=== PATIENT | female | born 1940 | race Hispanic/Latino ===

== ENCOUNTER 2016-07-26 11:23 | Emergency (ER) | payer MEDICARE, MEDICAID ==
[2016-07-26 12:07] LABS: #Eosinphils 0.1 thou/uL (0.0-0.7); #Lymphocytes 1.9 thou/uL (1.20-3.40); #Monocytes 0.3 thou/uL (0.11-0.59); #Neutrophils 3.3 thou/uL (1.40-6.50); %Basophils 0.8 % (0.0-1.0); %Eosinophils 1.4 % (0.0-10.0); %Lymphocytes 33.2 % (21.0-51.0); Hematocrit 43.4 % (36.0-47.0); Mean Platelet Volume 7.6 fL (7.4-10.4); Red Blood Cell (RBC) Count 5.16 mill/uL (4.20-5.40); White Blood Cell (WBC) Count 5.6 thou/uL (4.8-10.8)
[2016-07-26 12:21] LABS: ALT (SGPT) 21 U/L (0-55); AST (SGOT) 18 U/L (5-34); Alkaline Phosphatase 130 U/L (40-150); Anion Gap 14 mmol/L (10-20); BUN (Urea Nitrogen) 26 mg/dL (9.8-20.1); Bilirubin, Total 0.3 mg/dL (0.2-1.2); CK (CPK) 93 U/L (29-168); Calc. Creatinine Clearance 0 mL/min (70-130); Calcium 9.4 mg/dL (7.8-10.44); Carbon Dioxide 23 mmol/L (23-31); Chloride 109 mmol/L (98-107); Estimated GFR-MDRD 49; Globulin 3.2 g/dL (2.4-3.5); Protein, Total 7.8 g/dL (5.8-8.1)
[2016-07-26 12:23] LABS: Troponin I 0.016 ng/mL (< 0.028)
[2016-07-26 12:46] LABS: Bilirubin Negative (Negative); Blood, Urine Negative (Negative); Glucose, Urine (Dipstick) 100 mg/dL (Negative); Ketone, Urine Negative (Negative); Nitrite Negative (Negative); Protein, Urine (Dipstick) Negative (Neg-Trace); Urobilinogen 0.2 mg/dL (0.2-1.0)
[2016-07-26 12:51] LABS: Bacteria/HPF Rare-Few HPF (None Seen); RBC/HPF None Seen HPF (0-3); WBC/HPF 0-3 HPF (0-3)
--- NOTE | 2016-07-26 13:10 | ERRECORD ---
[facility] EMERGENCY RECORD HPI SYNCOPE (11:40 JROB) CHIEF COMPLAINT: Patient presents for evaluation of syncope. HISTORIAN: History provided by patient, 76 year old female was brought in by friend after syncopal episode while at [employer] today. The patient states that she felt well this morning, ate breakfast, then was picked up for [employer]. The while at [employer] she suddenly "fell", bystanders said she was unconscious for several seconds. LOCATION: No localizing symptoms. QUALITY: Symptom quality described as blackout. SEVERITY: Current severity of pain rated as 0/10. TIME COURSE: Sudden onset of symptoms. ASSOCIATED WITH: No associated abdominal pain, No associated back pain, No associated chest pain, No associated diarrhea, Associated with fall, No associated GI Bleed, Associated with headache, No associated shortness of breath, No associated seizures, No associated vomiting. EXACERBATED BY: Patient's condition exacerbated by nothing. RELIEVED BY: Patient's condition relieved by nothing. RISK FACTORS: Abdominal aortic aneurysm risk factors, include age over 40 years, Subarachnoid hemorrhage risk factors, not applicable for this patient, Thoracic aortic dissection risk factors, include hypertension, Coronary artery disease risk factors, include diabetes, include hypertension. ROS (11:44 JROB) CONSTITUTIONAL: Historian denies chills, denies fever. EYES: Historian denies vision changes. ENT: Historian denies sore throat. CARDIOVASCULAR: Historian denies chest pain, reports syncope. RESPIRATORY: Historian denies cough, denies shortness of breath. GI: Historian denies nausea, denies vomiting. GENITOURINARY FEMALE: Historian denies dysuria. MUSCULOSKELETAL: Historian denies back pain. SKIN: Historian denies rash. NEUROLOGIC: Historian reports headache. HEMO/LYMPHATIC: Historian denies abnormal blood clotting. ALLERGIC/IMMUNOLOGIC: Historian denies frequent infections. PSYCHIATRIC: Historian denies alcohol abuse, denies drug abuse. NOTES: All systems reviewed, negative except as described above. PAST MEDICAL HISTORY MEDICAL HISTORY: Flu vaccine not up to date, Tetanus not up to date, Pneumococcal vaccine not up to date, Past medical history includes history of hyperlipidemia, high cholesterol, Past medical history includes history of diabetes, Type I, Past medical history includes history of hypertension, which has been treated,. (11:39 BDON) FEMALE SURGICAL HISTORY: Surgical history of &a-1R&a+25V*p+0X*a6025B*c202B*c15G*c2P*p-0X&a-25V&a+1R Name: Yesenia Page : 1940 F76 MedRec: [id number] AcctNum: [id number] Prepared: Kathryn Jul 26, 2016 15:31 by Interface Page 1 of 4 pMD [facility] EMERGENCY RECORD section, Surgical history of tubal ligation,. (11:39 BDON) PSYCHIATRIC HISTORY: No previous psychiatric history. (11:39 BDON) SOCIAL HISTORY: Patient denies alcohol use, Patient denies drug use, Patient has no smoking history, . (11:39 BDON) NOTES: Nursing records reviewed, Agree with nursing records, Medication list reviewed. (11:46 JROB) KNOWN ALLERGIES No Known Allergies (Unconfirmed) No Known Drug Allergies CURRENT MEDICATIONS lisinopril: TABLET : Strength - 40 mg : ORAL Patient Dose: 40 mg Oral 2 times a day. (11:35 BDON) amLODIPine: TABLET : Strength - 10 mg : ORAL Patient Dose: 10 mg Oral once a day. (11:35 BDON) pravastatin: TABLET : Strength - 20 mg : ORAL Patient Dose: 20 mg null. (11:36 BDON) meloxicam: TABLET : Strength - 7.5 mg : ORAL Patient Dose: 7.5 mg/kg null. (11:36 BDON) meclizine: CAPSULE : Strength - 25 mg : ORAL Patient Dose: 25 mg Oral As Needed. (11:36 BDON) acetaminophen-codeine: TABLET : Strength - 325 mg-30 mg : ORAL Patient Dose: 1-2 tab(s) Oral every 6 hours PRN. (11:36 BDON) VITAL SIGNS VITAL SIGNS: BP: 123/96, Pulse: 87, Resp: 20, Pain: 0, O2 sat: 100, Time: 07/26/2016 11:33. (11:33 BDON) Temp: 98.5 (Oral), Time: 07/26/2016 11:35. (11:35 BDON) BP: 189/86, Pulse: 73, Resp: 18, Pain: 0, O2 sat: 97, Time: 07/26/2016 12:31. (12:31 BDON) BP: 202/75, Time: 07/26/2016 12:39. (12:39 BDON) BP: 186/78, Pulse: 74, Resp: 14, O2 sat: 97, Time: 07/26/2016 13:00. (13:00 BDON) BP: 188/72, Pulse: 77, Time: 07/26/2016 13:31. (13:31 BDON) BP: 174/70, Pulse: 70, Resp: 15, Pain: 0, O2 sat: 99, Time: 07/26/2016 14:30. (14:30 BDON) BP: 154/65, Pulse: 71, Resp: 18, O2 sat: 98, Time: 07/26/2016 15:13. (15:13 BDON) PHYSICAL EXAM (11:45 JROB) CONSTITUTIONAL: Vital Signs Reviewed, Patient afebrile, Pulse &a-1R&a+25V*p+0X*r6050X*c202B*c15G*c2P*p-0X&a-25V&a+1R Name: Yesenia Page : 1940 F76 MedRec: [id number] AcctNum: [id number] Prepared: Kathryn Jul 26, 2016 15:31 by Interface Page 2 of 4 pMD [facility] EMERGENCY RECORD normal, Blood pressure normal, Patient alert and oriented to person, place and time. HEAD: Head exam normal, Head exam included findings of head atraumatic. EYES: Eye exam normal, Pupils equally round and reactive to light, Extraocular muscles intact. ENT: Nose exam normal, Pharynx exam normal, Mouth exam normal. NECK: Neck exam normal, no cervical adenopathy. RESPIRATORY CHEST: Breath sounds clear, No wheezing, No rales, No rhonchi. CARDIOVASCULAR: Cardiovascular assessment normal, Cardiovascular exam included findings of heart rate regular rate and rhythm, Heart sounds normal. ABDOMEN FEMALE: Abdominal exam included findings of abdomen nontender, no mass, no peritoneal signs. BACK: Back exam normal. UPPER EXTREMITY: Upper extremity exam normal, Upper extremity exam included findings of inspection normal, Motor strength normal, Sensation intact. LOWER EXTREMITY: Lower extremity exam normal, Lower extremity exam included findings of inspection normal, Motor strength normal, Sensation intact. NEURO: Neuro exam findings include patient oriented to person, place and time, no focal motor deficits, no focal sensory deficits, no cerebellar deficits. SKIN: Skin exam included findings of skin warm, dry. EKG INTERPRETATION (11:47 JROB) 12 LEAD EKG INTERPRETATION: 12 lead EKG interpreted by Emergency Department Physician at time of study, 12 lead EKG shows normal sinus rhythm, Rate (beats per minute): 75, with no ectopics, Conduction normal, ST segments normal, T waves normal, [place] normal, No other findings, Clinical impression: Normal EKG. RADIOLOGYINTERPRETATION HEAD: Head CT negative, without contrast, no bleed, no mass, no acute changes. (12:10 JROB) CHEST: Chest films negative, no infiltrates, no congestive heart failure, no effusion. (12:25 JROB) FUELS ENGINEER: Preliminary review of CT scans by, Radiologist. (12:10 JROB) Preliminary review of x-rays by, Radiologist. (12:25 JROB) DOCTOR NOTES TEXT: 73 year old female with syncopal episode, no preceding symptoms. Will check CT head, CXR, labs, continue to monitor. (11:47 JROB) Workup unremarkable this far, will discuss with PMD. (12:28 JROB) Discussed with Dr. Villareal, will proceed with transfer to . &a-1R&a+25V*p+0X*o9974C*c202B*c15G*c2P*p-0X&a-25V&a+1R Name: Yesenia Page : 1940 F76 MedRec: [id number] AcctNum: [id number] Prepared: Kathryn Jul 26, 2016 15:31 by Interface Page 3 of 4 pMD [facility] EMERGENCY RECORD Mary Grace Hansen. (12:43 JROB) Patient accepted by Dr. Evangelista at 12:45pm. (12:51 JROB) Blood pressure fluctuating, up to 200's/70's, then spontaneously down to 180's/70's, will continue to monitor. (13:19 JROB) PATIENT PLAN: The patient requires a transfer and will be transferred, per physician request, due to availability of specialty care, Transfer form completed. (12:51 JROB) DATA REVIEWED: Lab data reviewed, Xray data reviewed, Reviewed EKG. (12:51 JROB) PROBLEM LIST No recorded problems DIAGNOSIS DIFFERENTIAL: Based on history, exam and ancillary studies if indicated: Impression: syncope, Impression: near syncope, Impression: syncope of unclear etiology, Impression: volume depletion, Impression: cardiac dysrhythmia, Impression: seizure, Diagnoses considered are not limited to those documented above. (12:46 JROB) FINAL: PRIMARY: SYNCOPE AND COLLAPSE. (12:52 JROB) PRESCRIPTION No recorded prescriptions DISPOSITION PATIENT: Disposition Type: Transfer, Disposition: Transfer to [facility]. (12:52 JROB) Patient left the department. (15:24 BDON) Acosta: BDON=KADE Hudson, Nadine JROB=MD Chacorta, Sage &a-1R&a+25V*p+0X*x2643U*c202B*c15G*c2P*p-0X&a-25V&a+1R Name: Yesenia Page Suleman : 1940 F76 MedRec: [id number] AcctNum: [id number] Prepared: aKthryn Jul 26, 2016 15:31 by Interface Page 4 of 4 pMD MTDD
--- NOTE | 2016-07-26 13:13 | PICIS ---
[facility] EMERGENCY RECORD TRIAGE (WedJul 26, 2016 11:35 BDON) TRIAGE NOTES: syncope episode while walking at [employer]. (WedJul 26, 2016 11:35 BDON) PATIENT: NAME: Yesenia Page, AGE: 76, GENDER: female, : Wed1940, TIME OF GREET: WedJul 26, 2016 11:23, PREFERRED LANGUAGE: Afghan, ETHNICITY: or , ECODE BILLING MAP: [facility], SSN: [id number], Zip Code: [address], KG WEIGHT: 56.70, PHONE: , , , PERSON ID: [id number], PCP: Donn QUINTERO POLLACHI. (WedJul 26, 2016 11:35 BDON) COMPLAINT: PASSED OUT. (WedJul 26, 2016 11:35 BDON) ADMISSION: URGENCY: 2 Emergent, ADMISSION SOURCE: Other, TRANSPORT: Walk-in, BED: TRIAGE. (WedJul 26, 2016 11:35 BDON) ASSESSMENT: Assessment: Syncope event at scientology, witnessed for a few seconds., Symptoms began 30 min ago. (11:39 BDON) LMP: LMP: Not Applicable. (11:39 BDON) TREATMENTS IN PROGRESS: Treatments given Prehospital: Advil 0800. (11:39 BDON) PROVIDERS: TRIAGE NURSE: Nadine Hudson RN. ([place] Jul 26, 2016 11:35 BDON) VITAL SIGNS: BP 123/96, Pulse 87, Resp 20, Pain 0, O2 Sat 100, Time 07/26/2016 11:33. (11:33 BDON) PREVIOUS VISIT ALLERGIES: No Known Drug Allergies. ([place] Jul 26, 2016 11:35 BDON) No Known Drug Allergies. (11:39 BDON) KNOWN ALLERGIES No Known Allergies (Unconfirmed) No Known Drug Allergies CURRENT MEDICATIONS lisinopril: TABLET : Strength - 40 mg : ORAL Patient Dose: 40 mg Oral 2 times a day. (11:35 BDON) amLODIPine: TABLET : Strength - 10 mg : ORAL Patient Dose: 10 mg Oral once a day. (11:35 BDON) pravastatin: TABLET : Strength - 20 mg : ORAL Patient Dose: 20 mg null. (11:36 BDON) meloxicam: TABLET : Strength - 7.5 mg : ORAL Patient Dose: 7.5 mg/kg null. (11:36 BDON) meclizine: CAPSULE : Strength - 25 mg : ORAL Patient Dose: 25 mg Oral As Needed. (11:36 BDON) acetaminophen-codeine: TABLET : Strength - 325 mg-30 mg : ORAL Patient Dose: 1-2 tab(s) Oral every 6 hours PRN. (11:36 BDON) &a-1R&a+25V*p+0X*e9093K*c202B*c15G*c2P*p-0X&a-25V&a+1R Name: Yesenia Page : 1940 F76 MedRec: [id number] AcctNum: [id number] Prepared: Kathryn Jul 26, 2016 15:32 by Interface Page 1 of 9 pMD [facility] EMERGENCY RECORD VITAL SIGNS VITAL SIGNS: BP: 123/96, Pulse: 87, Resp: 20, Pain: 0, O2 sat: 100, Time: 07/26/2016 11:33. (11:33 BDON) Temp: 98.5 (Oral), Time: 07/26/2016 11:35. (11:35 BDON) BP: 189/86, Pulse: 73, Resp: 18, Pain: 0, O2 sat: 97, Time: 07/26/2016 12:31. (12:31 BDON) BP: 202/75, Time: 07/26/2016 12:39. (12:39 BDON) BP: 186/78, Pulse: 74, Resp: 14, O2 sat: 97, Time: 07/26/2016 13:00. (13:00 BDON) BP: 188/72, Pulse: 77, Time: 07/26/2016 13:31. (13:31 BDON) BP: 174/70, Pulse: 70, Resp: 15, Pain: 0, O2 sat: 99, Time: 07/26/2016 14:30. (14:30 BDON) BP: 154/65, Pulse: 71, Resp: 18, O2 sat: 98, Time: 07/26/2016 15:13. (15:13 BDON) NURSING ASSESSMENT: CVA ASSESSMENT TOOL (11:35 BDON) CONSTITUTIONAL: Patient arrives, via hospital wheelchair, History obtained from patient, Patient appears comfortable, Patient cooperative, Patient alert, Oriented to person, place and time, Skin warm, Skin dry, Skin normal in color. CVA ASSESSMENT: Speech normal, Hand grasps equal, Foot press equal, Upper extremity motor strength strong, Lower extremity motor strength strong, no facial numbness, no facial droop, no numbness to upper extremities, no numbness to lower extremities, [place] coma scale:, Eye opening: (4) - Spontaneous, Verbal: (5) - Oriented/conversive, Motor: (6) - Obeys commands/Spontaneous, GCS Total: 15. NIHSS: CVA assessment findings: Level of consciousness: alert, keenly responsive (0), Questions: answers both questions correctly (0), Commands: performs both tasks correctly (0), Best gaze: normal (0), Visual: no visual loss (0), Facial palsy: normal symmetrical movement (0), Motor Left Arm: no drift, arm stays 90/45 degrees for full 10 seconds (0), Motor Right Arm: no drift, arm stays 90/45 degrees for full 10 seconds (0), Motor left leg: no drift, leg stays at 30 degrees for full five seconds (0), Motor right leg: no drift, leg stays at 30 degrees for full five seconds (0), Limb ataxia absent (0), Sensory: normal, no sensory loss (0), Best language: no aphasia; normal (0), Dysarthria: normal (0), Extinction and Inattention: normal (0). NURSING ASSESSMENT: FALL RISK (12:53 BDON) FALL RISK: Impaired mobility (3), Neurologic diagnosis (3), Total score 6. NURSING PROCEDURE: BEDSIDE TESTING (11:38 MCBE) PATIENT IDENTIFIER: Patient actively involved in identification process, Patient's identity verified by patient stating name, Patient's identity verified by patient stating date, Patient's identity verified by hospital ID bracelet. &a-1R&a+25V*p+0X*v5777I*c202B*c15G*c2P*p-0X&a-25V&a+1R Name: CamiloMiguel bermudezjacinto Shell : 1940 F76 MedRec: [id number] AcctNum: [id number] Prepared: Kathryn Jul 26, 2016 15:32 by Interface Page 2 of 9 pMD [facility] EMERGENCY RECORD GLUCOSE: Glucose testing indicated for diabetic patient, Glucose testing indicated for mental status changes, Capillary blood sample, Result (mg/dl) 163. NURSING PROCEDURE: COMMUNICATIONS COMMUNICATIONS: Family, Phone number: [phone], Son went home, will call when she is transported. (14:22 BDON) Family, Name of person contacted: larissa Lewis mom left ER. (15:19 BDON) NURSING PROCEDURE: EKG CHART (11:42 MCBE) PATIENT IDENTIFIER: Patient actively involved in identification process, Patient's identity verified by patient stating name, Patient's identity verified by patient stating date, Patient's identity verified by hospital ID bracelet. EKG: EKG indicated for syncope. FOLLOW-UP: After procedure, EKG for interpretation given to Dr. DELATORRE. NURSING PROCEDURE: NURSE NOTES NURSES NOTES: Notes: Ambulatory to restroom with assistance. (12:32 BDON) Notes: Patient and family aware of need for admission and agrees to be transferred to [facility]. (12:40 BDON) Notes: Physician aware of increase in blood pressure, will retake,. (12:47 BDON) Meal tray given to patient. (13:27 BDON) Notes: URINE CULTURE NOT COLLECTED NOR ORDERED BY ERMD. ORDER WAS PUT IN TO CHECK IF EVENT SALES ASSISTANT WAS WORKING. (14:56 MCBE) Notes: Departed to [facility]. (15:11 BDON) NURSING PROCEDURE: TRANSFER (13:31 BDON) TRANSFER: Reason for transfer no bed available, Reason for transfer primary physician request, Diagnosis: Syncope and collapse, Accepting institution: [facility], Accepting physician: Jean Carlos, Referring physician: Chacorta, Transported by urgent ambulance, accompanied by emergency medical services personnel, Report called to receiving facility, KADE Younger. VITAL SIGNS: BP: 188, / 72, Pulse: 77. NURSING PROCEDURE: TRANSPORT TO TESTS (12:25 KPEA) TRANSPORT TO TESTS: Patient transported to CT scan, Accompanied by x-ray endoscope technician, Patient arrived in location at 1154. Patient departed location at 1205. Patient arrived in location at 1154, Patient departed location at 1205. ORDER DETAILS Order Name: Cardiac Profile w/CKMB & Troponin - I, Status: Active, Time: 11:40 07/26/2016, User: NEGAR, &a-1R&a+25V*p+0X*e1512T*c202B*c15G*c2P*p-0X&a-25V&a+1R Name: Yesenia Page : 1940 F76 MedRec: [id number] AcctNum: [id number] Prepared: Kathryn Jul 26, 2016 15:32 by Interface Page 3 of 9 pMD [facility] EMERGENCY RECORD - Ordered for: MD Delatorre Joseph, - Entered by: MD Delatorre Joseph - Kathryn Jul 26, 2016 11:40, - Quantity: 1, Order Name: CBC with Differential, Status: Active, Time: 11:40 07/26/2016, User: NEGAR, - Ordered for: MD Delatorre Joseph, - Entered by: MD Delatorre Joseph - Kathryn Jul 26, 2016 11:40, - Quantity: 1, Order Name: CK (CPK), Status: Active, Time: 11:40 07/26/2016, User: NEGAR, - Ordered for: MD Delatorre Joseph, - Entered by: MD Delatorre Joseph - Kathryn Jul 26, 2016 11:40, - Quantity: 1, Order Name: Comprehensive Metabolic Panel, Status: Active, Time: 11:40 07/26/2016, User: NEGAR, - Ordered for: MD Delatorre Joseph, - Entered by: MD Delatorre Joseph - Sun Jul 26, 2016 11:40, - Quantity: 1, Order Name: CT Brain WO Con, Status: Active, Time: 11:40 07/26/2016, User: NEGAR, - Ordered for: MD Delatorre Joseph, - Entered by: MD Delatorre Joseph - Sun Jul 26, 2016 11:40, - Quantity: 1, Order Name: Culture, Urine, Status: Active, Time: 14:54 07/26/2016, User: STEVE, - Ordered for: MD Delatorre Joseph, - Entered by: Kenya Thrasher - Kathryn Jul 26, 2016 14:54, - Quantity: 1, Order Name: EKG 12 Lead in Emergency Room, Status: Active, Time: 11:40 07/26/2016, User: NEGAR, - Ordered for: MD Delatorre Joseph, - Entered by: MD Delatorre Joseph - Kathryn Jul 26, 2016 11:40, - Quantity: 1, Order Name: SALINE LOCK, Status: Done, Time: 11:55 07/26/2016, User: STEVE, - Ordered for: MD Delatorre Joseph, - Entered by: MD Delatorre Joseph - Kathryn Jul 26, 2016 11:40, - Quantity: 1, Order Name: Urinalysis with Microscopic, Status: Active, Time: 11:40 07/26/2016, User: NEGAR, - Ordered for: MD Delatorre Joseph, - Entered by: MD Delatorre Joseph - Kathryn Jul 26, 2016 11:40, - Quantity: 1, Order Name: XR Chest 1 View Portable, Status: Active, Time: 11:40 07/26/2016, User: NEGAR, - Ordered for: MD Delatorre Joseph, - Entered by: MD Delatorre Joseph - Kathryn Jul 26, 2016 11:40, - Quantity: 1. HPI SYNCOPE (11:40 NEGAR) &a-1R&a+25V*p+0X*a4533S*c202B*c15G*c2P*p-0X&a-25V&a+1R Name: Yesenia Page : 1940 F76 MedRec: [id number] AcctNum: [id number] Prepared: Kathryn Jul 26, 2016 15:32 by Interface Page 4 of 9 pMD [facility] EMERGENCY RECORD CHIEF COMPLAINT: Patient presents for evaluation of syncope. HISTORIAN: History provided by patient, 76 year old female was brought in by friend after syncopal episode while at scientology today. The patient states that she felt well this morning, ate breakfast, then was picked up for scientology. The while at scientology she suddenly "fell", bystanders said she was unconscious for several seconds. LOCATION: No localizing symptoms. QUALITY: Symptom quality described as blackout. SEVERITY: Current severity of pain rated as 0/10. TIME COURSE: Sudden onset of symptoms. ASSOCIATED WITH: No associated abdominal pain, No associated back pain, No associated chest pain, No associated diarrhea, Associated with fall, No associated GI Bleed, Associated with headache, No associated shortness of breath, No associated seizures, No associated vomiting. EXACERBATED BY: Patient's condition exacerbated by nothing. RELIEVED BY: Patient's condition relieved by nothing. RISK FACTORS: Abdominal aortic aneurysm risk factors, include age over 40 years, Subarachnoid hemorrhage risk factors, not applicable for this patient, Thoracic aortic dissection risk factors, include hypertension, Coronary artery disease risk factors, include diabetes, include hypertension. ROS (11:44 JROB) CONSTITUTIONAL: Historian denies chills, denies fever. EYES: Historian denies vision changes. ENT: Historian denies sore throat. CARDIOVASCULAR: Historian denies chest pain, reports syncope. RESPIRATORY: Historian denies cough, denies shortness of breath. GI: Historian denies nausea, denies vomiting. GENITOURINARY FEMALE: Historian denies dysuria. MUSCULOSKELETAL: Historian denies back pain. SKIN: Historian denies rash. NEUROLOGIC: Historian reports headache. HEMO/LYMPHATIC: Historian denies abnormal blood clotting. ALLERGIC/IMMUNOLOGIC: Historian denies frequent infections. PSYCHIATRIC: Historian denies alcohol abuse, denies drug abuse. NOTES: All systems reviewed, negative except as described above. PAST MEDICAL HISTORY MEDICAL HISTORY: Flu vaccine not up to date, Tetanus not up to date, Pneumococcal vaccine not up to date, Past medical history includes history of hyperlipidemia, high cholesterol, Past medical history includes history of diabetes, Type I, Past medical history includes history of hypertension, which has been treated,. (11:39 BDON) FEMALE SURGICAL HISTORY: Surgical history of section, Surgical history of tubal ligation,. (11:39 BDON) &a-1R&a+25V*p+0X*n8341O*c202B*c15G*c2P*p-0X&a-25V&a+1R Name: Yesenia Page Suleman : 1940 F76 MedRec: [id number] AcctNum: [id number] Prepared: Kathryn Jul 26, 2016 15:32 by Interface Page 5 of 9 pMD [facility] EMERGENCY RECORD PSYCHIATRIC HISTORY: No previous psychiatric history. (11:39 BDON) SOCIAL HISTORY: Patient denies alcohol use, Patient denies drug use, Patient has no smoking history, . (11:39 BDON) NOTES: Nursing records reviewed, Agree with nursing records, Medication list reviewed. (11:46 JROB) PHYSICAL EXAM (11:45 JROB) CONSTITUTIONAL: Vital Signs Reviewed, Patient afebrile, Pulse normal, Blood pressure normal, Patient alert and oriented to person, place and time. HEAD: Head exam normal, Head exam included findings of head atraumatic. EYES: Eye exam normal, Pupils equally round and reactive to light, Extraocular muscles intact. ENT: Nose exam normal, Pharynx exam normal, Mouth exam normal. NECK: Neck exam normal, no cervical adenopathy. RESPIRATORY CHEST: Breath sounds clear, No wheezing, No rales, No rhonchi. CARDIOVASCULAR: Cardiovascular assessment normal, Cardiovascular exam included findings of heart rate regular rate and rhythm, Heart sounds normal. ABDOMEN FEMALE: Abdominal exam included findings of abdomen nontender, no mass, no peritoneal signs. BACK: Back exam normal. UPPER EXTREMITY: Upper extremity exam normal, Upper extremity exam included findings of inspection normal, Motor strength normal, Sensation intact. LOWER EXTREMITY: Lower extremity exam normal, Lower extremity exam included findings of inspection normal, Motor strength normal, Sensation intact. NEURO: Neuro exam findings include patient oriented to person, place and time, no focal motor deficits, no focal sensory deficits, no cerebellar deficits. SKIN: Skin exam included findings of skin warm, dry. LAB INTERPRETATION (12:27 JROB) INTERPRETATION: I reviewed the lab results, CBC normal, Chemistry abnormal, Chloride elevated, Glucose elevated, BUN elevated, Chemistry otherwise normal, Cardiac enzymes normal, Liver functions normal. EVENTS TRANSFER: Triage to Emergency Triage. (Kathryn Jul 26, 2016 11:35 BDON) Emergency Triage to Emergency Room -03. (11:36 BDON) Removed from Emergency Emergency Room -03. (15:24 BDON) RADIOLOGYINTERPRETATION HEAD: Head CT negative, without contrast, no bleed, no mass, no &a-1R&a+25V*p+0X*y2170Z*c202B*c15G*c2P*p-0X&a-25V&a+1R Name: Yesenia Page Suleman : 1940 F76 MedRec: [id number] AcctNum: [id number] Prepared: Kathryn Jul 26, 2016 15:32 by Interface Page 6 of 9 pMD [facility] EMERGENCY RECORD acute changes. (12:10 JROB) CHEST: Chest films negative, no infiltrates, no congestive heart failure, no effusion. (12:25 JROB) HUNTING SALES LEADER: Preliminary review of CT scans by, Radiologist. (12:10 JROB) Preliminary review of x-rays by, Radiologist. (12:25 JROB) EKG INTERPRETATION (11:47 JROB) 12 LEAD EKG INTERPRETATION: 12 lead EKG interpreted by Emergency Department Physician at time of study, 12 lead EKG shows normal sinus rhythm, Rate (beats per minute): 75, with no ectopics, Conduction normal, ST segments normal, T waves normal, Marvell normal, No other findings, Clinical impression: Normal EKG. O2SAT INTERPRETATION (11:46 JROB) O2SAT: Single pulse oximetry, Oxygen saturation 100%, on room air, Oxygen saturation interpretation: Normal, No intervention required. DOCTOR NOTES TEXT: 73 year old female with syncopal episode, no preceding symptoms. Will check CT head, CXR, labs, continue to monitor. (11:47 JROB) Workup unremarkable this far, will discuss with PMD. (12:28 JROB) Discussed with Dr. Villareal, will proceed with transfer to [facility]. (12:43 JROB) Patient accepted by Dr. Evangelista at 12:45pm. (12:51 JROB) Blood pressure fluctuating, up to 200's/70's, then spontaneously down to 180's/70's, will continue to monitor. (13:19 JROB) PATIENT PLAN: The patient requires a transfer and will be transferred, per physician request, due to availability of specialty care, Transfer form completed. (12:51 JROB) DATA REVIEWED: Lab data reviewed, Xray data reviewed, Reviewed EKG. (12:51 JROB) PROBLEM LIST No recorded problems DIAGNOSIS DIFFERENTIAL: Based on history, exam and ancillary studies if indicated: Impression: syncope, Impression: near syncope, Impression: syncope of unclear etiology, Impression: volume depletion, Impression: cardiac dysrhythmia, Impression: seizure, Diagnoses considered are not limited to those documented above. (12:46 JROB) FINAL: PRIMARY: SYNCOPE AND COLLAPSE. (12:52 JROB) DISPOSITION PATIENT: Disposition Type: Transfer, Disposition: Transfer to &a-1R&a+25V*p+0X*t4202L*c202B*c15G*c2P*p-0X&a-25V&a+1R Name: Yesenia Page : 1940 F76 MedRec: [id number] AcctNum: [id number] Prepared: [place] Jul 26, 2016 15:32 by Interface Page 7 of 9 pMD [facility] EMERGENCY RECORD [facility]. (12:52 JROB) Patient left the department. (15:24 BDON) PRESCRIPTION No recorded prescriptions IMAGING CONSENTS: Image captured from scanner. (12:55 BELE) MEMOR: Image captured from scanner. (12:55 BELE) *EKG: Image captured from scanner. (12:57 BELE) *SUPPLY CHARGE SHEET: Image captured from scanner. (15:23 BDON) ADMIN DIGITAL SIGNATURE: MD Delatorre Joseph. (12:53 JROB) MD Delatorre Joseph. (13:21 JROB) KADE Hudson, Nadine. (15:24 BDON) RESULTS LABORATORY: Accuchek Collection DT: [place] Jul 26, 2016 11:42, *Accuchek 163 - H mg/dL, Range (70-110). (11:48 JROB) CBC with Differential Collection DT: [place] Jul 26, 2016 12:00, White Blood Cell (WBC) Count 5.6 thou/uL, Range (4.8-10.8), Red Blood Cell (RBC) Count 5.16 mill/uL, Range (4.20-5.40), Hemoglobin 14.8 g/dL, Range (12.0-16.0), Hematocrit 43.4 %, Range (36.0-47.0), Mean Corpuscular Volume 84.2 fl, Range (81.0-99.0), Mean Corpuscular Hemoglobin 28.6 pg, Range (27.0-31.0), Mean Corpuscular HGB CONC 34.0 g/dL, Range (32.0-36.0), RBC Distribution Width 12.2 %, Range (11.5-14.5), Platelet Count 202 thou/uL, Range (130-400), Mean Platelet Volume 7.6 fL, Range (7.4-10.4), %Neutrophils 59.7 %, Range (42.0-75.0), %Lymphocytes 33.2 %, Range (21.0-51.0), %Monocytes 5.0 %, Range (0.0-10.0), %Eosinophils 1.4 %, Range (0.0-10.0), %Basophils 0.8 %, Range (0.0-1.0), #Neutrophils 3.3 thou/uL, Range (1.40-6.50), #Lymphocytes 1.9 thou/uL, Range (1.20-3.40), #Monocytes 0.3 thou/uL, Range (0.11-0.59), #Eosinphils 0.1 thou/uL, Range (0.0-0.7), #Basophils 0.0 thou/uL, Range (0.0-0.2). (12:08 JROB) Cardiac Profile w/CKMB & TropI Collection DT: [place] Jul 26, 2016 12:00, CKMB 1.8 ng/mL, Range (0-6.6), Troponin I 0.016 ng/mL, Range (< 0.028), Reference Range , 0.00 - 0.028 ng/mL Negative 0.029 - 0.29 ng/mL , Indeterminate Greater or Equal to 0.3 ng/mL Strongly suggests IN , . (12:23 JROB) &a-1R&a+25V*p+0X*n7633E*c202B*c15G*c2P*p-0X&a-25V&a+1R Name: Yesenia Page : 1940 F76 MedRec: [id number] AcctNum: [id number] Prepared: [place] Jul 26, 2016 15:32 by Interface Page 8 of 9 pMD [facility] EMERGENCY RECORD CK (CPK) Collection DT: [place] Jul 26, 2016 12:00, CK (CPK) 93 U/L, Range (29-168). (12:23 JROB) Comprehensive Metabolic Panel Collection DT: [place] Jul 26, 2016 12:00, Sodium 142 mmol/L, Range (136-145), Potassium 3.8 mmol/L, Range (3.5-5.1), *Chloride 109 - H mmol/L, Range (98-107), Carbon Dioxide 23 mmol/L, Range (23-31), Anion Gap 14 mmol/L, Range (10-20), *BUN (Urea Nitrogen) 26 - H mg/dL, Range (9.8-20.1), Creatinine 1.09 mg/dL, Range (0.6-1.1), Estimated GFR-MDRD 49 , Reference Range for Estimated GFR: Greater than 90, mL/min/1.73 m2 NOTE: The MDRD equation has not been validated for use, with the elderly (over 70 years of age), women, patients with, serious comorbid condition or persons with extremes of body size, muscle, mass, or nutritional status. , *Glucose 185 - H mg/dL, Range (83-110), Calcium 9.4 mg/dL, Range (7.8-10.44), Bilirubin, Total 0.3 mg/dL, Range (0.2-1.2), Protein, Total 7.8 g/dL, Range (5.8-8.1), NOTE: Plasma values are generally 0.3 to 0.5 g/dL higher than serum values, due to the presence of fibrinogen. , Albumin 4.6 g/dL, Range (3.4-4.8), Globulin 3.2 g/dL, Range (2.4-3.5), Alb/Glob Ratio 1.4 g/dL, Range (1.2-2.2), Alkaline Phosphatase 130 U/L, Range (40-150), AST (SGOT) 18 U/L, Range (5-34), ALT (SGPT) 21 U/L, Range (0-55). (12:23 JROB) Urinalysis with Microscopic Collection DT: [place] Jul 26, 2016 12:48, Color Yellow , Range (Yellow), Clarity Hazy , Range (Clear), Specific [place], Urine 1.015 , Range (1.005-1.030), pH, Urine 7.0 , Range (5.0-9.0), *Leukocyte Trace - H , Range (Negative), Nitrite Negative , Range (Negative), Protein, Urine (Dipstick) Negative mg/dL, Range (Neg-Trace), *Glucose, Urine (Dipstick) 100 - H mg/dL, Range (Negative), Ketone, Urine Negative mg/dL, Range (Negative), Urobilinogen 0.2 mg/dL, Range (0.2-1.0), Bilirubin Negative , Range (Negative), Blood, Urine Negative , Range (Negative), RBC/HPF None Seen HPF, Range (0-3), WBC/HPF 0-3 HPF, Range (0-3), *Squamous Epithelial 7-10 - H HPF, Range (0-3), Bacteria/HPF Rare-Few HPF, Range (None Seen). (12:55 JROB) Acosta: BDJESSICA=KADE Hudson, Nadine HAJI=KADE Hinkle Betty JROB=MD Chacorta, Sage COYNEEA=EFREM Carrillo Kim MCBE=Kenya Thrasher &a-1R&a+25V*p+0X*u5255D*c202B*c15G*c2P*p-0X&a-25V&a+1R Name: Yesenia Page : 1940 F76 MedRec: [id number] AcctNum: [id number] Prepared: Kathryn Jul 26, 2016 15:32 by Interface Page 9 of 9 pMD MTDD
--- NOTE | 2016-07-26 15:43 | CT ---
CT OF BRAIN PERFORMED WITHOUT CONTRAST ENHANCEMENT: HISTORY: Syncopal episode while walking at [employer]. FINDINGS: Small ventricular and sulcal prominence. There are no signs of intracerebral hemorrhage or extraaxi al fluid collections. The mastoid air cells are clear. There is mucosal change in the partially vi sualized right maxillary sinus. IMPRESSION: No acute intracranial abnormalities. POS: TOM
--- NOTE | 2016-07-26 15:43 | RAD ---
SINGLE VIEW OF THE CHEST: COMPARISON: 01/31/2016 HISTORY: Syncope while walking at [employer]. FINDINGS: Single view of the chest shows a normal sized cardiomediastinal silhouette. There is no evidence of consolidation, mass, or pleural effusion. Degenerative changes are seen in the spine. IMPRESSION: No evidence of acute cardiopulmonary disease. POS: TOM
== END 2016-07-26 15:11 | disposition short-term general hospital (02) ==
LOC: NAV ERS 11:23
DX: R55 Syncope and collapse (principal); E78.5 Hyperlipidemia, unspecified; E10.9 Type 1 diabetes mellitus without complications; I10 Essential (primary) hypertension; Z98.51 Tubal ligation status
CPT/HCPCS: 36416; 70450; 71010; 80053; 81001; 82550; 82553; 84484; 85025; 87086; 93005

== ENCOUNTER 2016-08-24 04:35 | Emergency (ER) | payer MEDICARE, MEDICAID ==
[2016-08-24 05:02] LABS: #Basophils 0.1 thou/uL (0.0-0.2); #Eosinphils 0.1 thou/uL (0.0-0.7); #Lymphocytes 1.9 thou/uL (1.20-3.40); #Monocytes 0.3 thou/uL (0.11-0.59); #Neutrophils 3.2 thou/uL (1.40-6.50); %Lymphocytes 34.4 % (21.0-51.0); %Monocytes 5.8 % (0.0-10.0); Hematocrit 36.3 % (36.0-47.0); Mean Platelet Volume 7.1 fL (7.4-10.4); Red Blood Cell (RBC) Count 4.35 mill/uL (4.20-5.40); White Blood Cell (WBC) Count 5.6 thou/uL (4.8-10.8)
[2016-08-24 05:21] LABS: ALT (SGPT) 13 U/L (0-55); AST (SGOT) 13 U/L (5-34); Alkaline Phosphatase 105 U/L (40-150); Anion Gap 11 mmol/L (10-20); BUN (Urea Nitrogen) 24 mg/dL (9.8-20.1); Bilirubin, Total 0.3 mg/dL (0.2-1.2); CK (CPK) 69 U/L (29-168); Calc. Creatinine Clearance 0 mL/min (70-130); Calcium 7.8 mg/dL (7.8-10.44); Carbon Dioxide 21 mmol/L (23-31); Chloride 115 mmol/L (98-107); Estimated GFR-MDRD 67; Globulin 2.4 g/dL (2.4-3.5); Lipase 23 U/L (8-78)
[2016-08-24 05:32] LABS: Troponin I Less than 0.010 ng/mL (< 0.028)
--- NOTE | 2016-08-24 06:22 | ERRECORD ---
[facility] EMERGENCY RECORD ADMIN (04:46 MBOS) MERGE: Ambulance Mon Aug 24, 2016 04:31. HPI CHEST PAIN (05:18 SHAN) CHIEF COMPLAINT: Patient presents for evaluation of chest pain. HISTORIAN: History provided by patient, Patient arrived from home with c/o not feeling good, possibly chest pain, no clear history. Arrived by ems. Came on after getting up to have a bowel movement. TIME COURSE: Sudden onset of symptoms, Symptoms are improving. ASSOCIATED WITH: No associated symptoms. EXACERBATED BY: Patient's condition exacerbated by nothing. RELIEVED BY: Patient's condition relieved by nothing. ROS (05:20 SHAN) CONSTITUTIONAL: Negative constitutional review of systems. EYES: Negative eye review of systems. ENT: Negative ears, nose, throat review of systems. CARDIOVASCULAR: Negative cardiovascular review of systems. RESPIRATORY: Negative respiratory review of systems. GI: Negative gastrointestinal review of systems. GENITOURINARY FEMALE: Negative genitourinary review of systems. MUSCULOSKELETAL: Negative musculoskeletal review of systems. SKIN: Negative skin review of systems. NEUROLOGIC: Negative neurologic review of systems. ENDOCRINE: Negative endocrine review of systems. NOTES: All systems reviewed, negative except as described above. PAST MEDICAL HISTORY MEDICAL HISTORY: Flu vaccine up to date, Tetanus not up to date, Pneumococcal vaccine up to date, Past medical history includes history of diabetes, Type I, Past medical history includes history of hyperlipidemia, high cholesterol, Past medical history includes history of hypertension, which has been treated. (04:46 MBOS) Notes: Past medical history includes history of hyperlipidemia, high cholesterol, history of diabetes, Type I (by history), hypertension., Flu vaccine up to date, Tetanus not up to date, Pneumococcal vaccine up to date, Past medical history includes history of diabetes, Type I, Past medical history includes history of hyperlipidemia, high cholesterol, Past medical history includes history of hypertension, which has been treated. (05:31 SHAN) FEMALE SURGICAL HISTORY: Surgical history of tubal ligation. (04:46 MBOS) PSYCHIATRIC HISTORY: No previous psychiatric history. (04:46 MBOS) SOCIAL HISTORY: Patient denies alcohol use, Patient denies drug &a-1R&a+25V*p+0X*n1213C*c202B*c15G*c2P*p-0X&a-25V&a+1R Name: Yesenia Page : 1940 F76 MedRec: [id number] AcctNum: [id number] Prepared: WedAug 24, 2016 08:24 by Interface Page 1 of 4 pMD [facility] EMERGENCY RECORD use, Patient has no smoking history. (04:46 MBOS) KNOWN ALLERGIES No Known Allergies (Unconfirmed) No Known Drug Allergies CURRENT MEDICATIONS (05:52 MBOS) amLODIPine: TABLET : Strength - 10 mg : ORAL Patient Dose: 10 mg Oral once a day. pravastatin: TABLET : Strength - 20 mg : ORAL Patient Dose: 20 mg null. meloxicam: TABLET : Strength - 7.5 mg : ORAL Patient Dose: 7.5 mg/kg null. meclizine: CAPSULE : Strength - 25 mg : ORAL Patient Dose: 25 mg Oral As Needed. VITAL SIGNS VITAL SIGNS: BP: 162/65, Pulse: 80, Resp: 13, Temp: 98.5 (Oral), Pain: 2, O2 sat: 99 on Room Air, Time: 08/24/2016 04:40. (04:40 MBOS) BP: 134/60, Pulse: 74, O2 sat: 98, Time: 08/24/2016 06:13. (06:13 MBOS) BP: 116/53, Pulse: 70, Resp: 16, O2 sat: 98 on Room Air, Time: 08/24/2016 07:00. (07:00 MSPE) BP: 144/67, Pulse: 100, Resp: 18, Pain: 0, O2 sat: 100 on RA, Time: 08/24/2016 08:18. (08:18 GHIA) PHYSICAL EXAM (05:20 SHAN) CONSTITUTIONAL: Patient afebrile, Pulse normal, Blood pressure normal, Respiratory rate normal, Patient appears non toxic, Patient appears pain free, Patient alert and oriented to person, place and time. HEAD: Head exam included findings of head atraumatic, normocephalic. EYES: Eye exam normal, Eye exam included findings of eyelids normal to inspection, Pupils equally round and reactive to light, Extraocular muscles intact. ENT: ENT exam normal, Pharynx exam normal, Uvula exam normal, Tonsil exam normal. NECK: Neck exam normal, Neck exam included findings of normal range of motion, Trachea midline. RESPIRATORY CHEST: Respiratory and chest exam normal, Chest exam included findings of chest movement symmetrical, Chest expansion equal, Percussion normal. CARDIOVASCULAR: Cardiovascular assessment normal, Cardiovascular exam included findings of heart rate regular rate and rhythm, Heart sounds normal. ABDOMEN FEMALE: Abdominal exam normal, Abdominal exam included &a-1R&a+25V*p+0X*b5606U*c202B*c15G*c2P*p-0X&a-25V&a+1R Name: Yesenia Page : 1940 F76 MedRec: [id number] AcctNum: [id number] Prepared: WedAug 24, 2016 08:24 by Interface Page 2 of 4 pMD [facility] EMERGENCY RECORD findings of abdomen nontender, Bowel sounds normal. BACK: Back exam normal. UPPER EXTREMITY: Upper extremity exam normal, Upper extremity exam included findings of inspection normal, Range of motion normal. LOWER EXTREMITY: Lower extremity exam normal, Lower extremity exam included findings of inspection normal, Range of motion normal. NEURO: Neuro exam normal. SKIN: Skin exam normal. PSYCHIATRIC: Psychiatric exam normal, Psychiatric exam included findings of patient oriented to person place and time, Normal affect, Judgment normal, Insight normal. EKG INTERPRETATION (05:43 SHAN) 12 LEAD EKG INTERPRETATION: 12 lead EKG interpreted by Emergency Department Physician at time of study, 12 lead EKG shows normal sinus rhythm, Conduction normal, ST segments normal, T waves normal, [place] normal. MEDICATION ADMINISTRATION SUMMARY Drug Name: *potassium chloride liquid, Dose Ordered: * , Route: Oral, Status: Given, Time: 05:43 08/24/2016, *Additional information available in notes, Detailed record available in Medication Service section. DOCTOR NOTES TEXT: Adult female who presented by ems with vague symptoms of not feeling good. Got up at home to have a bowel movement and continued to not feel good. At one point when asked gave an affirmative to some chest pain but very vague and not clearly repeatable on history. (05:35 SHAN) She appears to be on glimepiride for her diabetes, but has very poor chronic memory/dementia. From evidence at hand; records indicating type 1 diabetes are likely incorrect, with glimepiride as agent; insulin resistant more likely but data not available. Patient does not mention a diuretic, but again does not have much understanding of her meds. Lives with a son. States that daughters drive for her. Potassium replaced. Will allow a pill for potassium. No clear admission criteria. Social situation limited. (05:55 JOSEPH) DATA REVIEWED: Lab data reviewed, Xray data reviewed, Reviewed EKG. (05:35 JOSEPH) PROBLEM LIST No recorded problems DIAGNOSIS (06:13 JOSEPH) FINAL: PRIMARY: atypical chest pain, ADDITIONAL: diabetes type 2, hyperlipidemia, Hypertension, Hypokalemia. &a-1R&a+25V*p+0X*y2642V*c202B*c15G*c2P*p-0X&a-25V&a+1R Name: Yesenia Page : 1940 F76 MedRec: [id number] AcctNum: [id number] Prepared: WedAug 24, 2016 08:24 by Interface Page 3 of 4 pMD [facility] EMERGENCY RECORD PRESCRIPTION (06:12 JOSEPH) potassium chloride oral: CAPSULE, EXTENDED RELEASE : 10 mEq : ORAL : Quantity: 2 Unit: cap(s) Route: ORAL Schedule: once a day Dispense: 30 Unit: cap(s) May substitute. Refills: No Refills . NOTES: No Refills. DISPOSITION PATIENT: Disposition Type: Discharge, Disposition: *Discharge Home. (06:13 JOSEPH) Patient left the department. (08:22 KINGS) Acosta: KINGS=KADE Zapata, Mayela MCINTYRE=KADE Gonzalez Marie MSPE=KADE Villasenor, Opal RUIZ=MD Payne Stanley &a-1R&a+25V*p+0X*p5037A*c202B*c15G*c2P*p-0X&a-25V&a+1R Name: Yesenia Page Suleman : 1940 F76 MedRec: [id number] AcctNum: [id number] Prepared: WedAug 24, 2016 08:24 by Interface Page 4 of 4 pMD MTDD
--- NOTE | 2016-08-24 06:28 | PICIS ---
[facility] EMERGENCY RECORD ADMIN MERGE: Ambulance WedAug 24, 2016 04:31. (04:46 MBOS) TRIAGE (04:43 MBOS) TRIAGE NOTES: states she isn't feeling well, had a bowel movement and still is not feeling well, chest pain. (04:43 MBOS) PATIENT: NAME: Yesenia Page, AGE: 76, GENDER: female, : Wed1940, TIME OF GREET: WedAug 24, 2016 04:36, PREFERRED LANGUAGE: Peruvian, ETHNICITY: or , ECODE BILLING MAP: [facility], SSN: [id number], Zip Code: [address], KG WEIGHT: 56.70, PHONE: , , , PERSON ID: [id number], PCP: Donn QUINTERO POLLACHI. (04:43 MBOS) COMPLAINT: NOT FEELING WELL. (04:43 MBOS) ADMISSION: URGENCY: 2 Emergent, ADMISSION SOURCE: Home, TRANSPORT: AMBULANCE - [facility], BED: ER -02. (04:43 MBOS) ASSESSMENT: Assessment: patient states she just isn't feeling well, complaining of mild chest pain, Additional Triage notes: was seen recently for similar complaint. (04:46 MBOS) IMMUNIZATIONS: Flu vaccine up to date, Tetanus not up to date, Pneumococcal vaccine up to date. (04:46 MBOS) SIRS SCORING: Heart Rate 55-109 (0), Temp range 96.8-101.1 (0), respiratory rate 12-24 (0). (04:46 MBOS) PROVIDERS: TRIAGE NURSE: Corina Gonzalez RN. (04:43 MBOS) VITAL SIGNS: BP 162/65, Pulse 80, Resp 13, Temp 98.5, (Oral), Pain 2, O2 Sat 99, on Room Air, Time 08/24/2016 04:40. (04:40 MBOS) PREVIOUS VISIT ALLERGIES: No Known Drug Allergies. (04:43 MBOS) No Known Drug Allergies. (04:46 MBOS) KNOWN ALLERGIES No Known Allergies (Unconfirmed) No Known Drug Allergies CURRENT MEDICATIONS (05:52 MBOS) amLODIPine: TABLET : Strength - 10 mg : ORAL Patient Dose: 10 mg Oral once a day. pravastatin: TABLET : Strength - 20 mg : ORAL Patient Dose: 20 mg null. meloxicam: TABLET : Strength - 7.5 mg : ORAL Patient Dose: 7.5 mg/kg null. meclizine: CAPSULE : Strength - 25 mg : ORAL Patient Dose: 25 mg Oral As Needed. VITAL SIGNS VITAL SIGNS: BP: 162/65, Pulse: 80, Resp: 13, Temp: 98.5 (Oral), Pain: 2, O2 sat: 99 on Room Air, Time: 08/24/2016 04:40. (04:40 MBOS) &a-1R&a+25V*p+0X*a0317C*c202B*c15G*c2P*p-0X&a-25V&a+1R Name: Yesenia Page : 1940 F76 MedRec: [id number] AcctNum: [id number] Prepared: WedAug 24, 2016 08:29 by Interface Page 1 of 10 pMD [facility] EMERGENCY RECORD BP: 134/60, Pulse: 74, O2 sat: 98, Time: 08/24/2016 06:13. (06:13 MBOS) BP: 116/53, Pulse: 70, Resp: 16, O2 sat: 98 on Room Air, Time: 08/24/2016 07:00. (07:00 MSPE) BP: 144/67, Pulse: 100, Resp: 18, Pain: 0, O2 sat: 100 on RA, Time: 08/24/2016 08:18. (08:18 GHIA) NURSING ASSESSMENT: ABDOMEN (04:50 MBOS) ABDOMEN: Abdomen soft, non-tender, Bowel sound normal, no associated nausea, no associated vomiting, no associated diarrhea, no associated constipation. SAFETY: Side rails up, Cart/Stretcher in lowest position, Call light within reach, Hospital ID band on. NURSING ASSESSMENT: RESPIRATORY /CHEST (04:50 MBOS) CONSTITUTIONAL: Patient arrives, via stretcher, via [facility], History obtained from patient, Patient appears comfortable, Patient cooperative, Patient alert, Oriented to person, place and time, Skin warm, Skin dry, Skin normal in color, Mucous membranes pink, Mucous membranes moist, Patient is well-groomed, Patient complains of not feeling well, patient also complaining of mild chest pain. PAIN: midsternal, on a scale 0-10 patient rates pain as 2. RESPIRATORY/CHEST: Lungs auscultated, Breath sounds diminished, to bilateral upper lobes, to the right middle lobe, to bilateral lower lobes, Respiratory assessment findings include respiratory effort easy, Respirations regular, Conversing normally, Neck and chest exam findings include trachea midline, Chest expansion equal, Chest movement symmetrical, no associated cough noted, no associated fever, no associated fume exposure. SAFETY: Side rails up, Cart/Stretcher in lowest position, Call light within reach, Hospital ID band on. NURSING PROCEDURE: EXT JS DEVELOPER (04:46 LHAL) PATIENT IDENTIFIER: Patient actively involved in identification process, Patient's identity verified by patient stating name, Patient's identity verified by patient stating date, Patient's identity verified by hospital ID bracelet. EXT JS DEVELOPER: Cardiac monitoring indicated for complaint of chest pain, Patient placed on ekg monitor tech, Heart rate: 80, showing normal sinus rhythm, without ectopy, with no ST segment changes, Strip posted on chart, Patient placed on non-invasive blood pressure monitor, with disposable blood pressure cuff applied, Patient placed on continuous pulse oximetry, Adult/pediatric oxisensor applied, Oxygen saturation 99%. FOLLOW-UP: After procedure, alarms set and on, After procedure, patient tolerating monitoring. SAFETY: Side rails up, Cart/Stretcher in lowest position, Call light within reach, Hospital ID band on. &a-1R&a+25V*p+0X*a4836G*c202B*c15G*c2P*p-0X&a-25V&a+1R Name: Yesenia Page : 1940 F76 MedRec: [id number] AcctNum: [id number] Prepared: WedAug 24, 2016 08:29 by Interface Page 2 of 10 D [facility] EMERGENCY RECORD NURSING PROCEDURE: COMMUNICATIONS (05:36 MBOS) COMMUNICATIONS: Critical lab value, received at 0536, received from Torito, Critical lab result: 2.9, given to Dr Payne, results read back and verified, orders received, read back and verified. SAFETY: Side rails up, Cart/Stretcher in lowest position, Call light within reach, Hospital ID band on. NURSING PROCEDURE: DISCHARGE NOTE (08:18 [facility]) DISCHARGE: Patient discharged to home, in a wheelchair, family driving, accompanied by other family member, Summary of Care printed/ provided, Transition record given to patient, Discharge instructions given to patient, Discharge instructions given to SO x 1 at bedside, Simple or moderate discharge teaching performed, Prescriptions given and instructions on side effects given, Above person(s) verbalized understanding of discharge instructions and follow-up care. BELONGINGS: Belongings remain with patient, Valuables remain with patient. NOTES: Patient tolerated procedure well. SAFETY: Notes: pt alert and cheerful. Time spent with emphasis on pt needs to follow up with a Dr regarding K+ level rechecks. VITAL SIGNS: BP: 144, / 67, Pulse: 100, Resp: 18, Pain: 0, O2 sat: 100, on: RA. NURSING PROCEDURE: EKG CHART (04:43 LHAL) PATIENT IDENTIFIER: Patient actively involved in identification process, Patient's identity verified by patient stating name, Patient's identity verified by patient stating date, Patient's identity verified by hospital ID bracelet, Patient's identity verified by other identifier done at 0440 hr. EKG: EKG indicated for complaint of chest pain, 12 lead EKG performed on the left chest, done by Landon MELENDEZ RN. FOLLOW-UP: After procedure, EKG for interpretation given to Dr. DR PAYNE. SAFETY: Side rails up, Cart/Stretcher in lowest position, Call light within reach, Hospital ID band on. NURSING PROCEDURE: IV IV SITE 1: Notes: done by EMS job captain, 20g LAC. (04:45 LHAL) FOLLOW-UP SITE 1: After procedure, 2x2 dressing applied, IV discontinued, due to patient being discharged, catheter intact. (07:50 MSPE) NURSING PROCEDURE: NURSE NOTES NURSES NOTES: Notes: Awaiting ride. Have tried calling patient's daughter's cell phone 3 times, will continue calling. &a-1R&a+25V*p+0X*t0221O*c202B*c15G*c2P*p-0X&a-25V&a+1R Name: Yesenia Page : 1940 F76 MedRec: [id number] AcctNum: [id number] Prepared: WedAug 24, 2016 08:29 by Interface Page 3 of 10 pMD [facility] EMERGENCY RECORD Patient does not have any other phone numbers for possible rides. (06:40 MBOS) Notes: Report rec'd from KADE Choi. Assumed care. Pt resting quietly with eyes closed; awakens easily. No complaints. Pt able to give me phone number of her grand daughter, Isabel. [phone]. Called Isabel and told her pt here and needing ride home. She said she would "go wake up my mom". (07:00 MSPE) Warm blanket given to patient, Beverage given to patient, Notes: Rec'd call from pt's daughter that she would be by to pick pt up after taking son to school at 0800. Pt aware. IV dc'd. Assisted pt to dress. Up in WC. Awaiting family. (07:50 MSPE) ORDER DETAILS Order Name: EXT JS DEVELOPER ED, Status: Done, Time: 04:44 08/24/2016, User: BRADLEY, - Ordered for: MD Payne Stanley, - Entered by: KADE Melendez [facility] Aug 24, 2016 04:44, - Quantity: 1, Order Name: Cardiac Profile w/CKMB & Troponin - I, Status: Active, Time: 04:44 08/24/2016, User: BRADLEY, - Ordered for: MD Payne Stanley, - Entered by: KADE Melendez Linda [facility] Aug 24, 2016 04:44, - Quantity: 1, Order Name: CBC with Differential, Status: Active, Time: 04:44 08/24/2016, User: BRADLEY, - Ordered for: MD Payne Stanley, - Entered by: KADE Melendez Linda [facility] Aug 24, 2016 04:44, - Quantity: 1, Order Name: CK (CPK), Status: Active, Time: 04:44 08/24/2016, User: BRADLEY, - Ordered for: MD Payne Stanley, - Entered by: KADE Melendez Linda [facility] Aug 24, 2016 04:44, - Quantity: 1, Order Name: Comprehensive Metabolic Panel, Status: Active, Time: 04:44 08/24/2016, User: BRADLEY, - Ordered for: MD Payne Stanley, - Entered by: KADE Melendez [facility] Aug 24, 2016 04:44, - Quantity: 1, Order Name: EKG 12 Lead in Emergency Room, Status: Active, Time: 04:44 08/24/2016, User: BRADLEY, - Ordered for: MD Payne Stanley, - Entered by: KADE Melendez Linda [facility] Aug 24, 2016 04:44, - Quantity: 1, Order Name: Lipase, Status: Active, Time: 04:44 08/24/2016, User: BRADLEY, - Ordered for: MD Payne Stanley, - Entered by: KADE Melendez [facility] Aug 24, 2016 04:44, - Quantity: 1, &a-1R&a+25V*p+0X*d0975A*c202B*c15G*c2P*p-0X&a-25V&a+1R Name: Yesenia Page Suleman : 1940 F76 MedRec: [id number] AcctNum: [id number] Prepared: WedAug 24, 2016 08:29 by Interface Page 4 of 10 D [facility] EMERGENCY RECORD Order Name: SALINE LOCK, Status: Done, Time: 04:44 08/24/2016, User: BRADLEY, - Ordered for: MD Payne Stanley, - Entered by: KADE Melendez Linda [facility] Aug 24, 2016 04:44, - Quantity: 1, Order Name: XR Chest 1 View Portable, Status: Active, Time: 04:44 08/24/2016, User: BRADLEY, - Ordered for: MD Payne Stanley, - Entered by: KADE Melendez Linda [facility] Aug 24, 2016 04:44, - Quantity: 1. MEDICATION ADMINISTRATION SUMMARY Drug Name: *potassium chloride liquid, Dose Ordered: * , Route: Oral, Status: Given, Time: 05:43 08/24/2016, *Additional information available in notes, Detailed record available in Medication Service section. MEDICATION SERVICE (05:43 SHAN) potassium chloride liquid: Free Text order: potassium chloride liquid : 40 meq of liquid : Oral Ordered by: David Payne MD Entered by: David Payne MD WedAug 24, 2016 05:38 Documented as given by: Corina Gonzalez RN WedAug 24, 2016 05:43 Patient, Medication, Dose, Route and Time verified prior to administration. Patient appears Awake and alert- acceptable, Correct patient, time, route, dose and medication confirmed prior to administration, Patient advised of actions and side-effects prior to administration, Allergies confirmed and medications reviewed prior to administration, Patient in position of comfort, Side rails up, Cart in lowest position. HPI CHEST PAIN (05:18 SHAN) CHIEF COMPLAINT: Patient presents for evaluation of chest pain. HISTORIAN: History provided by patient, Patient arrived from home with c/o not feeling good, possibly chest pain, no clear history. Arrived by ems. Came on after getting up to have a bowel movement. TIME COURSE: Sudden onset of symptoms, Symptoms are improving. ASSOCIATED WITH: No associated symptoms. EXACERBATED BY: Patient's condition exacerbated by nothing. RELIEVED BY: Patient's condition relieved by nothing. ROS (05:20 SHAN) CONSTITUTIONAL: Negative constitutional review of systems. EYES: Negative eye review of systems. ENT: Negative ears, nose, throat review of systems. &a-1R&a+25V*p+0X*z8574R*c202B*c15G*c2P*p-0X&a-25V&a+1R Name: Yesenia Page : 1940 F76 MedRec: [id number] AcctNum: [id number] Prepared: WedAug 24, 2016 08:29 by Interface Page 5 of 10 pMD [facility] EMERGENCY RECORD CARDIOVASCULAR: Negative cardiovascular review of systems. RESPIRATORY: Negative respiratory review of systems. GI: Negative gastrointestinal review of systems. GENITOURINARY FEMALE: Negative genitourinary review of systems. MUSCULOSKELETAL: Negative musculoskeletal review of systems. SKIN: Negative skin review of systems. NEUROLOGIC: Negative neurologic review of systems. ENDOCRINE: Negative endocrine review of systems. NOTES: All systems reviewed, negative except as described above. PAST MEDICAL HISTORY MEDICAL HISTORY: Flu vaccine up to date, Tetanus not up to date, Pneumococcal vaccine up to date, Past medical history includes history of diabetes, Type I, Past medical history includes history of hyperlipidemia, high cholesterol, Past medical history includes history of hypertension, which has been treated. (04:46 MBOS) Notes: Past medical history includes history of hyperlipidemia, high cholesterol, history of diabetes, Type I (by history), hypertension., Flu vaccine up to date, Tetanus not up to date, Pneumococcal vaccine up to date, Past medical history includes history of diabetes, Type I, Past medical history includes history of hyperlipidemia, high cholesterol, Past medical history includes history of hypertension, which has been treated. (05:31 SHAN) FEMALE SURGICAL HISTORY: Surgical history of tubal ligation. (04:46 MBOS) PSYCHIATRIC HISTORY: No previous psychiatric history. (04:46 MBOS) SOCIAL HISTORY: Patient denies alcohol use, Patient denies drug use, Patient has no smoking history. (04:46 MBOS) PHYSICAL EXAM (05:20 SHAN) CONSTITUTIONAL: Patient afebrile, Pulse normal, Blood pressure normal, Respiratory rate normal, Patient appears non toxic, Patient appears pain free, Patient alert and oriented to person, place and time. HEAD: Head exam included findings of head atraumatic, normocephalic. EYES: Eye exam normal, Eye exam included findings of eyelids normal to inspection, Pupils equally round and reactive to light, Extraocular muscles intact. ENT: ENT exam normal, Pharynx exam normal, Uvula exam normal, Tonsil exam normal. NECK: Neck exam normal, Neck exam included findings of normal range of motion, Trachea midline. RESPIRATORY CHEST: Respiratory and chest exam normal, Chest exam included findings of chest movement symmetrical, Chest expansion equal, Percussion normal. CARDIOVASCULAR: Cardiovascular assessment normal, Cardiovascular &a-1R&a+25V*p+0X*n0887W*c202B*c15G*c2P*p-0X&a-25V&a+1R Name: Yesenia Page : 1940 F76 MedRec: [id number] AcctNum: [id number] Prepared: WedAug 24, 2016 08:29 by Interface Page 6 of 10 pMD [facility] EMERGENCY RECORD exam included findings of heart rate regular rate and rhythm, Heart sounds normal. ABDOMEN FEMALE: Abdominal exam normal, Abdominal exam included findings of abdomen nontender, Bowel sounds normal. BACK: Back exam normal. UPPER EXTREMITY: Upper extremity exam normal, Upper extremity exam included findings of inspection normal, Range of motion normal. LOWER EXTREMITY: Lower extremity exam normal, Lower extremity exam included findings of inspection normal, Range of motion normal. NEURO: Neuro exam normal. SKIN: Skin exam normal. PSYCHIATRIC: Psychiatric exam normal, Psychiatric exam included findings of patient oriented to person place and time, Normal affect, Judgment normal, Insight normal. EVENTS TRANSFER: Triage to Emergency Emergency Room -02. (WedAug 24, 2016 04:43 MBOS) Removed from Emergency Emergency Room -02. (08:22 IA) EKG INTERPRETATION (05:43 SHAN) 12 LEAD EKG INTERPRETATION: 12 lead EKG interpreted by Emergency Department Physician at time of study, 12 lead EKG shows normal sinus rhythm, Conduction normal, ST segments normal, T waves normal, [place] normal. DOCTOR NOTES TEXT: Adult female who presented by ems with vague symptoms of not feeling good. Got up at home to have a bowel movement and continued to not feel good. At one point when asked gave an affirmative to some chest pain but very vague and not clearly repeatable on history. (05:35 SHAN) She appears to be on glimepiride for her diabetes, but has very poor chronic memory/dementia. From evidence at hand; records indicating type 1 diabetes are likely incorrect, with glimepiride as agent; insulin resistant more likely but data not available. Patient does not mention a diuretic, but again does not have much understanding of her meds. Lives with a son. States that daughters drive for her. Potassium replaced. Will allow a pill for potassium. No clear admission criteria. Social situation limited. (05:55 SHAN) DATA REVIEWED: Lab data reviewed, Xray data reviewed, Reviewed EKG. (05:35 SHAN) PROBLEM LIST No recorded problems DIAGNOSIS (06:13 SHAN) FINAL: PRIMARY: atypical chest pain, ADDITIONAL: diabetes type 2, hyperlipidemia, Hypertension, Hypokalemia. &a-1R&a+25V*p+0X*s2872Y*c202B*c15G*c2P*p-0X&a-25V&a+1R Name: Yesenia Page : 1940 F76 MedRec: [id number] AcctNum: [id number] Prepared: WedAug 24, 2016 08:29 by Interface Page 7 of 10 pMD [facility] EMERGENCY RECORD DISPOSITION PATIENT: Disposition Type: Discharge, Disposition: *Discharge Home. (06:13 [facility]) Patient left the department. (08:22 [facility]) INSTRUCTION (06:16 [facility]) DISCHARGE: HYPOKALEMIA, WEAKNESS, UNK CAUSE, DIABETES, GENERAL INFO, HYPERTENSION, ESTABLISHED. FOLLOWUP: Donn QUINTERO, BRUNO, Internal Medicine, [address] [place] [facility] [place] [address], [phone]. SPECIAL: 1. two of the potassium tablets daily 2. see your regular provider soon and decide on continued potassium and consider laboratory recheck 3. return if condition worsens. PRESCRIPTION (06:12 [facility]) potassium chloride oral: CAPSULE, EXTENDED RELEASE : 10 mEq : ORAL : Quantity: 2 Unit: cap(s) Route: ORAL Schedule: once a day Dispense: 30 Unit: cap(s) May substitute. Refills: No Refills . NOTES: No Refills. IMAGING *EKG: Image captured from scanner. (05:55 [facility]) OUTSIDE RECORDS: Image captured from scanner. (06:33 MBOS) Page 2 added. Image captured from scanner. (06:33 MBOS) Page 3 added. Image captured from scanner. (06:33 MBOS) Page 4 added. Image captured from scanner. (06:33 MBOS) Page 5 added. Image captured from scanner. (06:33 MBOS) *SUPPLY CHARGE SHEET: Image captured from scanner. (08:27 [facility]) *DISCHARGE INSTRUCTIONS RECEIPT: Image captured from scanner. (08:28 [facility]) ADMIN DIGITAL SIGNATURE: KADE Melendez Linda. (04:45 [facility]) KADE Melendez Linda. (04:47 [facility]) MD Payne Stanley. (06:17 [facility]) MD Payne Stanley. (06:59 [facility]) RESULTS LABORATORY: CBC with Differential Collection DT: WedAug 24, 2016 04:57, White Blood Cell (WBC) Count 5.6 thou/uL, Range (4.8-10.8), Red Blood Cell (RBC) Count 4.35 mill/uL, Range (4.20-5.40), Hemoglobin 12.5 g/dL, Range (12.0-16.0), Hematocrit 36.3 %, Range (36.0-47.0), Mean Corpuscular Volume 83.3 fl, Range (81.0-99.0), Mean Corpuscular Hemoglobin 28.8 pg, Range (27.0-31.0), Mean Corpuscular HGB CONC 34.6 g/dL, Range (32.0-36.0), &a-1R&a+25V*p+0X*i3913A*c202B*c15G*c2P*p-0X&a-25V&a+1R Name: Yesenia Page : 1940 F76 MedRec: [id number] AcctNum: [id number] Prepared: WedAug 24, 2016 08:29 by Interface Page 8 of 10 D [facility] EMERGENCY RECORD RBC Distribution Width 12.3 %, Range (11.5-14.5), Platelet Count 197 thou/uL, Range (130-400), *Mean Platelet Volume 7.1 - L fL, Range (7.4-10.4), %Neutrophils 56.7 %, Range (42.0-75.0), %Lymphocytes 34.4 %, Range (21.0-51.0), %Monocytes 5.8 %, Range (0.0-10.0), %Eosinophils 2.0 %, Range (0.0-10.0), %Basophils 1.0 %, Range (0.0-1.0), #Neutrophils 3.2 thou/uL, Range (1.40-6.50), #Lymphocytes 1.9 thou/uL, Range (1.20-3.40), #Monocytes 0.3 thou/uL, Range (0.11-0.59), #Eosinphils 0.1 thou/uL, Range (0.0-0.7), #Basophils 0.1 thou/uL, Range (0.0-0.2). (05:16 SHAN) Lipase Collection DT: WedAug 24, 2016 04:57, Lipase 23 U/L, Range (8-78). (05:30 SHAN) CK (CPK) Collection DT: WedAug 24, 2016 04:57, CK (CPK) 69 U/L, Range (29-168). (05:30 SHAN) Comprehensive Metabolic Panel Collection DT: WedAug 24, 2016 04:57, Sodium 144 mmol/L, Range (136-145), *Chloride 115 - H mmol/L, Range (98-107), *Carbon Dioxide 21 - L mmol/L, Range (23-31), Anion Gap 11 mmol/L, Range (10-20), *BUN (Urea Nitrogen) 24 - H mg/dL, Range (9.8-20.1), Creatinine 0.82 mg/dL, Range (0.6-1.1), Estimated GFR-MDRD 67 , Reference Range for Estimated GFR: Greater than 90, mL/min/1.73 m2 NOTE: The MDRD equation has not been validated for use, with the elderly (over 70 years of age), women, patients with, serious comorbid condition or persons with extremes of body size, muscle, mass, or nutritional status. , *Glucose 138 - H mg/dL, Range (83-110), Calcium 7.8 mg/dL, Range (7.8-10.44), Bilirubin, Total 0.3 mg/dL, Range (0.2-1.2), Protein, Total 6.0 g/dL, Range (5.8-8.1), NOTE: Plasma values are generally 0.3 to 0.5 g/dL higher than serum values, due to the presence of fibrinogen. , Albumin 3.6 g/dL, Range (3.4-4.8), Globulin 2.4 g/dL, Range (2.4-3.5), Alb/Glob Ratio 1.5 g/dL, Range (1.2-2.2), Alkaline Phosphatase 105 U/L, Range (40-150), AST (SGOT) 13 U/L, Range (5-34), ALT (SGPT) 13 U/L, Range (0-55). (05:30 SHAN) Lipase Collection DT: WedAug 24, 2016 04:57, Lipase 23 U/L, Range (8-78). (06:58 SHAN) CK (CPK) Collection DT: WedAug 24, 2016 04:57, CK (CPK) 69 U/L, Range (29-168). (06:58 SHAN) Comprehensive Metabolic Panel Collection DT: WedAug 24, 2016 04:57, Critical Call Chemistry [email or web address] , Refer to Critical Value &a-1R&a+25V*p+0X*l7839B*c202B*c15G*c2P*p-0X&a-25V&a+1R Name: Yesenia Page : 1940 F76 MedRec: [id number] AcctNum: [id number] Prepared: WedAug 24, 2016 08:29 by Interface Page 9 of 10 pMD [facility] EMERGENCY RECORD designated by an *L or *H , Sodium 144 mmol/L, Range (136-145), *Potassium 2.9 - *L mmol/L, Range (3.5-5.1), Critical value!, *Chloride 115 - H mmol/L, Range (98-107), *Carbon Dioxide 21 - L mmol/L, Range (23-31), Anion Gap 11 mmol/L, Range (10-20), *BUN (Urea Nitrogen) 24 - H mg/dL, Range (9.8-20.1), Creatinine 0.82 mg/dL, Range (0.6-1.1), Estimated GFR-MDRD 67 , Reference Range for Estimated GFR: Greater than 90, mL/min/1.73 m2 NOTE: The MDRD equation has not been validated for use, with the elderly (over 70 years of age), women, patients with, serious comorbid condition or persons with extremes of body size, muscle, mass, or nutritional status. , *Glucose 138 - H mg/dL, Range (83-110), Calcium 7.8 mg/dL, Range (7.8-10.44), Bilirubin, Total 0.3 mg/dL, Range (0.2-1.2), Protein, Total 6.0 g/dL, Range (5.8-8.1), NOTE: Plasma values are generally 0.3 to 0.5 g/dL higher than serum values, due to the presence of fibrinogen. , Albumin 3.6 g/dL, Range (3.4-4.8), Globulin 2.4 g/dL, Range (2.4-3.5), Alb/Glob Ratio 1.5 g/dL, Range (1.2-2.2), Alkaline Phosphatase 105 U/L, Range (40-150), AST (SGOT) 13 U/L, Range (5-34), ALT (SGPT) 13 U/L, Range (0-55). (06:58 JOSEPH) Cardiac Profile w/CKMB & TropI Collection DT: WedAug 24, 2016 04:57, CKMB 1.8 ng/mL, Range (0-6.6), Troponin I Less than 0.010 ng/mL, Range (< 0.028), Reference Range , 0.00 - 0.028 ng/mL Negative 0.029 - 0.29 ng/mL , Indeterminate Greater or Equal to 0.3 ng/mL Strongly suggests RI , . (06:58 JOSEPH) Acosta: KINGS=KADE Zapata, Mayela HUERTA=KADE Melendez, Steph MCINTYRE=KADE Gonzalez, Corina COLE=KADE Villasenor, Opal RUIZ=MD Kerry, David &a-1R&a+25V*p+0X*p1974D*c202B*c15G*c2P*p-0X&a-25V&a+1R Name: Yesenia Page : 1940 F76 MedRec: [id number] AcctNum: [id number] Prepared: WedAug 24, 2016 08:29 by Interface Page 10 of 10 pMD MTDD
--- NOTE | 2016-08-24 08:01 | RAD ---
EXAM: CHEST 1 VIEW: COMPARISON: 07/26/16. HISTORY: Chest pain. FINDINGS: Normal cardiac silhouette. The pulmonary vessels and hilum are normal. No masses or consolidation. No pneumothorax or osseous abnormalities. IMPRESSION: No acute cardiopulmonary process. POS: [facility]
== END 2016-08-24 08:18 | disposition home or self-care (01) ==
LOC: NAV ERS 04:35
DX: R07.89 Other chest pain (principal); E11.9 Type 2 diabetes mellitus without complications; E78.5 Hyperlipidemia, unspecified; I10 Essential (primary) hypertension; E87.6 Hypokalemia; E78.00 Pure hypercholesterolemia, unspecified; Z79.899 Other long term (current) drug therapy
CPT/HCPCS: 71010; 80053; 82550; 82553; 83690; 84484; 85025; 93005

== ENCOUNTER 2016-08-31 11:25 | Outpatient (CLI) | payer MEDICARE, MEDICAID ==
[2016-08-31 12:38] LABS: Anion Gap 13 mmol/L (10-20); BUN (Urea Nitrogen) 21 mg/dL (9.8-20.1); Calc. Creatinine Clearance 0 mL/min (70-130); Calcium 9.2 mg/dL (7.8-10.44); Carbon Dioxide 25 mmol/L (23-31); Chloride 109 mmol/L (98-107); Estimated GFR-MDRD 56
== END 2016-08-31 11:26 ==
LOC: NAVSJIPCSP 11:25
PROVIDERS: ATTEND Internal Medicine
DX: E87.6 Hypokalemia (principal)
CPT/HCPCS: 36415; 80048

== ENCOUNTER 2016-09-03 06:03 | Emergency (ER) | payer MEDICARE, MEDICAID ==
[2016-09-03] MEDS ORDERED: Ketorolac Tromethamine 30 MG/ML VIAL ONE (06:40)
[2016-09-03] MEDS ORDERED: Diazepam 10 MG/2 ML SYRINGE ONE (06:40)
[2016-09-03 06:43] LABS: #Basophils 0.1 thou/uL (0.0-0.2); #Eosinphils 0.1 thou/uL (0.0-0.7); #Lymphocytes 1.8 thou/uL (1.20-3.40); #Monocytes 0.3 thou/uL (0.11-0.59); #Neutrophils 2.8 thou/uL (1.40-6.50); %Basophils 1.2 % (0.0-1.0); %Eosinophils 2.2 % (0.0-10.0); %Lymphocytes 35.3 % (21.0-51.0); %Monocytes 6.2 % (0.0-10.0); Hematocrit 38.4 % (36.0-47.0); Red Blood Cell (RBC) Count 4.56 mill/uL (4.20-5.40); White Blood Cell (WBC) Count 5.1 thou/uL (4.8-10.8)
[2016-09-03 06:46] LABS: Bilirubin Negative (Negative); Blood, Urine Trace (Negative); Glucose, Urine (Dipstick) Negative (Negative); Ketone, Urine Negative (Negative); Nitrite Negative (Negative); Protein, Urine (Dipstick) Negative (Neg-Trace); Urobilinogen 0.2 mg/dL (0.2-1.0)
[2016-09-03 06:53] LABS: RBC/HPF 0-3 HPF (0-3)
[2016-09-03 06:54] LABS: Bacteria/HPF None Seen HPF (None Seen); Squamous Epithelial None Seen HPF (0-3)
[2016-09-03 06:55] LABS: Anion Gap 13 mmol/L (10-20); BUN (Urea Nitrogen) 21 mg/dL (9.8-20.1); Calc. Creatinine Clearance 0 mL/min (70-130); Carbon Dioxide 24 mmol/L (23-31); Chloride 108 mmol/L (98-107); Estimated GFR-MDRD 57
[2016-09-03 06:59] LABS: Troponin I 0.017 ng/mL (< 0.028)
== END 2016-09-03 08:15 | disposition home or self-care (01) ==
LOC: NAV ERS 06:03
DX: I10 Essential (primary) hypertension (principal); R53.1 Weakness; E11.9 Type 2 diabetes mellitus without complications; E78.5 Hyperlipidemia, unspecified; E78.00 Pure hypercholesterolemia, unspecified; Z79.2 Long term (current) use of antibiotics; Z79.899 Other long term (current) drug therapy
CPT/HCPCS: 80048; 81003; 81015; 82553; 84484; 85025; 93005; 96374; 96375; J1885; J3360

== ENCOUNTER 2016-10-12 09:54 | Outpatient (CLI) | payer MEDICARE, MEDICAID ==
[2016-10-12 12:34] LABS: #Eosinphils 0.2 thou/uL (0.0-0.7); #Monocytes 0.4 thou/uL (0.11-0.59); #Neutrophils 3.1 thou/uL (1.40-6.50); %Basophils 0.9 % (0.0-1.0); %Eosinophils 3.6 % (0.0-10.0); %Lymphocytes 35.1 % (21.0-51.0); %Monocytes 6.5 % (0.0-10.0); %Neutrophils 53.9 % (42.0-75.0); Hemoglobin 12.7 g/dL (12.0-16.0); Mean Corpuscular HGB CONC 32.9 g/dL (32.0-36.0); Mean Corpuscular Hemoglobin 28.5 pg (27.0-31.0); Mean Corpuscular Volume 86.4 fl (81.0-99.0); Mean Platelet Volume 6.6 fL (7.4-10.4); Platelet Count 228 thou/uL (130-400); RBC Distribution Width 12.2 % (11.5-14.5); Red Blood Cell (RBC) Count 4.47 mill/uL (4.20-5.40); White Blood Cell (WBC) Count 5.7 thou/uL (4.8-10.8)
[2016-10-12 12:49] LABS: ALT (SGPT) 18 U/L (0-55); AST (SGOT) 17 U/L (5-34); Albumin 4.3 g/dL (3.4-4.8); Alkaline Phosphatase 137 U/L (40-150); Anion Gap 15 mmol/L (10-20); BUN (Urea Nitrogen) 24 mg/dL (9.8-20.1); Bilirubin, Total 0.3 mg/dL (0.2-1.2); Calc. Creatinine Clearance 0 mL/min (70-130); Calcium 9.2 mg/dL (7.8-10.44); Carbon Dioxide 22 mmol/L (23-31); Cardiac Risk 3.1 (Less than 4.5); Chloride 108 mmol/L (98-107); Cholesterol 107 mg/dL (< 200 Desired); Estimated GFR-MDRD 49; Globulin 2.8 g/dL (2.4-3.5); Glucose 152 mg/dL (83-110); HDL Cholesterol 35 mg/dL (>60 Neg Risk); LDL Cholesterol, Calculated 39 mg/dL; Potassium 3.8 mmol/L (3.5-5.1); Protein, Total 7.1 g/dL (5.8-8.1); Sodium 141 mmol/L (136-145); Triglycerides 166 mg/dL (Less than 150)
[2016-10-12 13:06] LABS: Hemoglobin A1c 6.1 % (4.0-6.0)
== END 2016-10-12 09:55 | disposition home or self-care (01) ==
LOC: NAVSJIPCSP 09:54
PROVIDERS: ATTEND Internal Medicine
DX: E78.5 Hyperlipidemia, unspecified (principal); E11.40 Type 2 diabetes mellitus with diabetic neuropathy, unspecified; M62.81 Muscle weakness (generalized); I11.9 Hypertensive heart disease without heart failure
CPT/HCPCS: 36415; 80053; 80061; 83036; 85025

== ENCOUNTER 2016-11-03 08:29 | Outpatient (CLI) | payer MEDICARE, MEDICAID ==
--- NOTE | 2016-11-04 07:47 | RAD ---
LEFT RIBS 3 VIEWS: HISTORY: Fall, left-sided chest pain. FINDINGS/IMPRESSION: No left-sided rib fracture is seen. POS: [facility]
== END 2016-11-03 08:30 | disposition home or self-care (01) ==
LOC: NAV RAD 08:29
PROVIDERS: ATTEND Internal Medicine
DX: S20.212A Contusion of left front wall of thorax, initial encounter (principal)

== ENCOUNTER 2017-01-13 09:23 | Outpatient (CLI) | payer MEDICARE, MEDICAID ==
[2017-01-13 12:31] LABS: Hemoglobin A1c 7.3 % (4.0-6.0)
[2017-01-13 13:01] LABS: Cardiac Risk 3.2 (Less than 4.5)
== END 2017-01-13 09:24 | disposition home or self-care (01) ==
LOC: NAVSJIPCSP 09:23
PROVIDERS: ATTEND Internal Medicine
DX: E78.5 Hyperlipidemia, unspecified (principal); E11.40 Type 2 diabetes mellitus with diabetic neuropathy, unspecified; Z79.899 Other long term (current) drug therapy
CPT/HCPCS: 36415; 80061; 83036

== ENCOUNTER 2017-04-09 17:14 | Emergency (ER) | payer MEDICARE, MEDICAID ==
[2017-04-09 18:01] LABS: #Eosinphils 0.1 thou/uL (0.0-0.7); #Lymphocytes 1.8 thou/uL (1.20-3.40); #Monocytes 0.2 thou/uL (0.11-0.59); #Neutrophils 2.5 thou/uL (1.40-6.50); %Basophils 0.7 % (0.0-1.0); %Eosinophils 1.9 % (0.0-10.0); %Lymphocytes 39.1 % (21.0-51.0); %Monocytes 4.4 % (0.0-10.0); %Neutrophils 53.9 % (42.0-75.0); Mean Corpuscular HGB CONC 32.2 g/dL (32.0-36.0); Mean Corpuscular Hemoglobin 25.8 pg (27.0-31.0); Mean Corpuscular Volume 80.1 fl (81.0-99.0); Mean Platelet Volume 6.9 fL (7.4-10.4); Platelet Count 186 thou/uL (130-400); RBC Distribution Width 13.1 % (11.5-14.5); Red Blood Cell (RBC) Count 4.66 mill/uL (4.20-5.40); White Blood Cell (WBC) Count 4.7 thou/uL (4.8-10.8)
[2017-04-09 18:09] LABS: Prothrombin Time 12.9 SEC (12.0-14.7)
[2017-04-09 18:10] LABS: PTT 31.3 SEC (22.9-36.1)
[2017-04-09 18:14] LABS: ALT (SGPT) 26 U/L (8-55); AST (SGOT) 20 U/L (5-34); Albumin 4.2 g/dL (3.4-4.8); Alkaline Phosphatase 135 U/L (40-150); Anion Gap 14 mmol/L (10-20); BUN (Urea Nitrogen) 22 mg/dL (9.8-20.1); Bilirubin, Total 0.3 mg/dL (0.2-1.2); Calc. Creatinine Clearance 0 mL/min (70-130); Calcium 9.2 mg/dL (7.8-10.44); Carbon Dioxide 21 mmol/L (23-31); Chloride 111 mmol/L (98-107); Estimated GFR-MDRD 58; Globulin 3.1 g/dL (2.4-3.5); Glucose 161 mg/dL (83-110); Potassium 3.9 mmol/L (3.5-5.1); Protein, Total 7.3 g/dL (6.0-8.3); Sodium 142 mmol/L (136-145)
--- NOTE | 2017-04-09 20:33 | CT ---
HEAD CT WITHOUT CONTRAST 04/09/17 COMPARISON: 07/26/16 HISTORY: Acute onset of hallucinations and weakness/difficulty walking, altered mental status. TECHNIQUE: Serial axial CT imaging at 5 mm intervals from vertex through skull base without contrast. FINDINGS: There is mucosal thickening involving bilateral maxillary sinuses. there is no displaced calvarial f racture, intracranial hemorrhage, midline shift or mass effect. IMPRESSION: No acute findings. If there is clinical concern for acute infarction, brain MRI is advised. Results discussed with Dr. Cruz at 5:45 p.m., 04/09/17. Code CR POS: [facility]
== END 2017-04-09 18:48 | disposition short-term general hospital (02) ==
LOC: NAV ERS 17:14
DX: R41.82 Altered mental status, unspecified (principal); I10 Essential (primary) hypertension; E10.9 Type 1 diabetes mellitus without complications; E78.5 Hyperlipidemia, unspecified; Z79.82 Long term (current) use of aspirin; Z79.84 Long term (current) use of oral hypoglycemic drugs; Z79.899 Other long term (current) drug therapy
CPT/HCPCS: 36416; 70450; 80053; 85025; 85610; 85730; 93005

== ENCOUNTER 2017-04-13 16:24 | Inpatient (IN) | payer MEDICARE, MEDICAID ==
[2017-04-13 17:38] VITALS: BMI 24.1
[2017-04-13] MEDS ORDERED: HumaLOG 300 UNITS/3 ML VIAL SC PRN (17:47)
[2017-04-13] MEDS ORDERED: Dextrose 50% Abboject 50 ML SYRINGE SLOW IVP PRN (17:47)
[2017-04-13] MEDS ORDERED: Dextrose 5% in Water 1,000 ML IV PRN (17:47)
[2017-04-13] MEDS ORDERED: cloNIDine HCl 0.1 MG TAB PO PRN (17:48)
[2017-04-13] MEDS ORDERED: Lisinopril 20 MG TAB PO SCH (18:00)
[2017-04-13] MEDS: Famotidine 20 MG TAB PO SCH (21:28)
[2017-04-13] MEDS: Pravastatin Sodium 20 MG TAB PO SCH (21:28)
[2017-04-13] MEDS: Docusate 100 MG CAP PO SCH (21:29)
[2017-04-13] MEDS: Aggrenox 200-25mg CAP PO SCH (21:29)
--- NOTE | 2017-04-14 00:22 | HP ---
DATE OF ADMISSION: 04/13/2017 CHIEF COMPLAINT: Recent cerebrovascular accident for therapy. BRIEF HISTORY: This is a very pleasant 76-year-old female who presented to [facility] on 04/09/2017, with right arm weakness. She was evaluated in the emergency room and was admitt ed to the hospital for evaluation of the weakness and the syncopal episode. MRI confirmed recent le ft paramedian pontine infarction with mild chronic microvascular ischemic disease. She did well. S he has been switched over to Aggrenox and she has been transferred here for therapy. She apparently , was not needing any blood pressure medicines or oral hyperglycemic agents, but here, her systolic blood pressure is 180. Her A1c was 7.3. I am going to start her back on her glimepiride. They hav e started her on amlodipine 5 mg in the morning, I am going add the lisinopril 20 at night and also clonidine p.r.n. We will opt for permissive hypertension, but we will only treat if systolic blood pressure is more than 160 or diastolic murmur than 95. Her speech is pretty much back to normal. S he denies any complaints. Her son is in the room. She denies any fever or chills, chest pain or sh ortness of breath, no problems with medications. PAST MEDICAL HISTORY: 1. Hypertension. 2. Dyslipidemia. 3. Diabetes mellitus, type 2. 4. Degenerative joint disease. PAST SURGICAL HISTORY: None. FAMILY HISTORY: Positive for diabetes and hypertension. PSYCHOSOCIAL HISTORY: No documented tobacco, alcohol, or IV drug abuse. Good family support. REVIEW OF SYSTEMS: Cardiovascular System: Denies any chest pain, shortness of breath, palpitations , paroxysmal nocturnal dyspnea, orthopnea, or pedal edema. Respiratory System: Denies any chronic cough, expectoration, or pleuritic type chest pain. Gastrointestinal System: Denies any nausea, vo miting, diarrhea, constipation, hematemesis, melena, or hematochezia. Genitourinary System: Denies any frequency, urgency, dysuria, or hematuria. Central Nervous System: No focal numbness, weaknes s, or fainting spells. MEDICATIONS: She has been transferred here on the following medications: 1. Amlodipine 5 mg daily. 2. Aggrenox 1 capsule b.i.d. 3. Colace 100 mg b.i.d. 4. Pepcid 20 mg b.i.d. 5. Pravachol 10 mg daily. PHYSICAL EXAMINATION: GENERAL: Very pleasant 76-year-old female, resting comfortably, in no acute distress. She responds appropriately to questions. Her son is in the room. VITAL SIGNS: She is afebrile. Heart rate 64, respirations 20, oxygen saturation 99%, blood pressur e is 181/81. HEENT: Normocephalic, atraumatic. Pupils are equal and reactive to light and accommodation. NECK: No JVD, thyromegaly, cervical adenopathy, throat exudates, or carotid bruits. CARDIOVASCULAR SYSTEM: S1 and S2 plus, rate and rhythm regular. RESPIRATORY SYSTEM: Normal vesicular breath sounds heard in all lung paulson. ABDOMEN: Soft, nontender, bowel sounds heard in all quadrants. EXTREMITIES: Without cyanosis or clubbing. Peripheral pulses are palpable. CENTRAL NERVOUS SYSTEM: Minimal right-sided weakness. LABORATORY DATA: Laboratory values are pending. IMPRESSION: 1. Left pontine cerebrovascular accident. 2. Hypertension. 3. Dyslipidemia. 4. Diabetes mellitus, type 2. 5. Degenerative joint disease. PLAN: 1. Continue current medications. 2. An 1800-calorie heart healthy ADA diet. 3. Accu-Cheks with sliding scale coverage. 4. Deep venous thrombosis prophylaxis with PlexiPulses. 5. Decubitus precautions. 6. Stress ulcer prophylaxis. 7. Physical therapy and occupational therapy evaluation and treat. 8. Routine laboratory values with CBC and BMP. 9. Discussed with son and patient in detail and all questions have been answered. 10. Estimated length of stay is 7 to 10 days.
[2017-04-14 05:13] LABS: #Eosinphils 0.1 thou/uL (0.0-0.7); #Lymphocytes 2.1 thou/uL (1.20-3.40); #Monocytes 0.4 thou/uL (0.11-0.59); #Neutrophils 2.9 thou/uL (1.40-6.50); %Basophils 0.7 % (0.0-1.0); %Eosinophils 2.3 % (0.0-10.0); %Lymphocytes 37.5 % (21.0-51.0); %Monocytes 6.3 % (0.0-10.0); %Neutrophils 53.2 % (42.0-75.0); Hemoglobin 11.4 g/dL (12.0-16.0); Mean Corpuscular HGB CONC 32.4 g/dL (32.0-36.0); Mean Corpuscular Volume 80.1 fl (81.0-99.0); Mean Platelet Volume 6.3 fL (7.4-10.4); Platelet Count 224 thou/uL (130-400); RBC Distribution Width 13.3 % (11.5-14.5); Red Blood Cell (RBC) Count 4.41 mill/uL (4.20-5.40); White Blood Cell (WBC) Count 5.5 thou/uL (4.8-10.8)
[2017-04-14 05:29] LABS: Anion Gap 11 mmol/L (10-20); BUN (Urea Nitrogen) 21 mg/dL (9.8-20.1); Calc. Creatinine Clearance 48 mL/min (70-130); Carbon Dioxide 23 mmol/L (23-31); Chloride 110 mmol/L (98-107); Estimated GFR-MDRD 62; Glucose 124 mg/dL (83-110); Potassium 3.9 mmol/L (3.5-5.1); Sodium 140 mmol/L (136-145)
[2017-04-14] MEDS: Famotidine 20 MG TAB PO SCH ×2 (08:45→21:14)
[2017-04-14] MEDS: Lisinopril 20 MG TAB PO SCH (08:45)
[2017-04-14] MEDS: Aggrenox 200-25mg CAP PO SCH ×2 (08:45→21:14)
[2017-04-14] MEDS: Docusate 100 MG CAP PO SCH ×2 (08:47→21:13)
--- NOTE | 2017-04-14 13:22 | PRG ---
DATE OF SERVICE: 04/14/2017 SUBJECTIVE: Ms. Page is doing well. Denies any complaints, resting comfortably, tolerating her medications. OBJECTIVE: VITAL SIGNS: She is afebrile, heart rate is 66, respirations 18, oxygen saturation is 97%, blood pr essure 122/59. CARDIOVASCULAR SYSTEM: S1, S2 plus. RESPIRATORY SYSTEM: Normal vesicular breath sounds. ABDOMEN: Soft, nontender, bowel sounds heard in all quadrants. EXTREMITIES: Without cyanosis or clubbing. CENTRAL NERVOUS SYSTEM: Mild right-sided weakness. IMPRESSION: 1. Recent cerebrovascular accident with right-sided weakness. 2. Diabetes mellitus type 2. 3. Hypertension. 4. Dyslipidemia. 5. Degenerative joint disease. PLAN: 1. Continue current medications. 2. Nutritional support. 3. Deep venous thrombosis prophylaxis. 4. Decubitus precautions. 5. Stress ulcer prophylaxis. 6. Continue physical therapy and occupational therapy. 7. Watch for any signs or symptoms of aspiration. 8. No family at the bedside.
[2017-04-14] MEDS: HumaLOG 300 UNITS/3 ML VIAL SC PRN (16:44)
[2017-04-14] MEDS: Pravastatin Sodium 20 MG TAB PO SCH (21:13)
[2017-04-15] MEDS: Lisinopril 20 MG TAB PO SCH (08:13)
[2017-04-15] MEDS: Aggrenox 200-25mg CAP PO SCH ×2 (08:13→21:19)
[2017-04-15] MEDS: Docusate 100 MG CAP PO SCH ×2 (08:14→21:19)
[2017-04-15] MEDS: Famotidine 20 MG TAB PO SCH ×2 (08:15→21:19)
[2017-04-15] MEDS ORDERED: Hydrocortisone Acetate 25 MG Suppository PR PRN (12:58)
--- NOTE | 2017-04-15 13:28 | PRG ---
DATE OF SERVICE: 04/15/2017 SUBJECTIVE: Ms. Page is doing well. Nursing states that she is having some issues with hemorrho ids. She denies any fever or chills. Denies any chest pain or shortness of breath. OBJECTIVE: VITAL SIGNS: She is afebrile, heart rate 63, respirations 16, oxygen saturation 98%, blood pressure 143/62. CARDIOVASCULAR: S1, S2 plus. RESPIRATORY SYSTEM: Normal vesicular breath sounds. ABDOMEN: Soft, nontender, bowel sounds heard in all quadrants. EXTREMITIES: Without cyanosis or clubbing. CENTRAL NERVOUS SYSTEM: Improving right-sided weakness. IMPRESSION: 1. Hemorrhoids. 2. Recent left hemispheric cerebrovascular accident with right-sided weakness. 3. Hypertension, well controlled. 4. Dyslipidemia. 5. Diabetes mellitus type 2. 6. Degenerative joint disease. PLAN: 1. Anusol-HC suppository b.i.d. 2. High fiber diet. 3. An 1800 calorie heart healthy ADA diet. 4. Accu-Cheks with sliding scale coverage. 5. Deep venous thrombosis prophylaxis. 6. Decubitus precautions. 7. Stress ulcer prophylaxis. 8. Routine laboratory values. 9. No family at the bedside.
[2017-04-15] MEDS: HumaLOG 300 UNITS/3 ML VIAL SC PRN (17:18)
[2017-04-15] MEDS: Pravastatin Sodium 20 MG TAB PO SCH (21:19)
[2017-04-15] MEDS: Guaifenesin DM 100-10/5 ML UDCUP PO PRN (21:58)
[2017-04-16] MEDS: Docusate 100 MG CAP PO SCH ×2 (08:46→20:52)
[2017-04-16] MEDS: Aggrenox 200-25mg CAP PO SCH ×2 (08:46→20:52)
[2017-04-16] MEDS: Famotidine 20 MG TAB PO SCH ×2 (08:47→20:52)
[2017-04-16] MEDS: Lisinopril 20 MG TAB PO SCH (08:47)
--- NOTE | 2017-04-16 09:57 | PRG ---
DATE OF SERVICE: 04/16/2017 SUBJECTIVE: Ms. Page is doing well. The cough medicine helped. She denies any complaints. Darlene radha is also helping. Discussed with nursing and no concerns. OBJECTIVE: VITAL SIGNS: She is afebrile, heart rate 53, respirations 20, blood pressure is 148/70. CARDIOVASCULAR: S1, S2 plus. RESPIRATORY: Normal vesicular breath sounds heard in all lung paulson. ABDOMEN: Soft, nontender, bowel sounds heard in all quadrants. EXTREMITIES: Without cyanosis or clubbing. CENTRAL NERVOUS SYSTEM: Improving right-sided weakness. LABORATORY VALUES: Blood sugars are 128, 198, 115 and 116. IMPRESSION: 1. Left hemispheric cerebrovascular accident with right-sided weakness. 2. Hypertension, reasonably controlled. 3. Diabetes mellitus type 2, well controlled. 4. Dyslipidemia. 5. Degenerative joint disease. 6. Hemorrhoids. PLAN: 1. Continue Anusol suppository b.i.d. for a total of 14 days. 2. 1800 calorie Heart healthy ADA diet. 3. Accu-Cheks with sliding scale coverage. 4. Deep venous thrombosis prophylaxis with PlexiPulses. 5. Decubitus precautions. 6. Stress ulcer prophylaxis. 7. Physical therapy and occupational therapy. 8. Routine laboratory values. 9. No family at the bedside. 10. Dr. Jerson Villareal is outreach liaison this weekend.
[2017-04-16] MEDS: Guaifenesin DM 100-10/5 ML UDCUP PO PRN (20:52)
[2017-04-16] MEDS: Pravastatin Sodium 20 MG TAB PO SCH (20:52)
--- NOTE | 2017-04-17 09:24 | RAD ---
PORTABLE CHEST ONE VIEW: 04/17/2017 7:52 a.m. HISTORY: Aspiration. COMPARISON: 08/24/2016 FINDINGS: The heart size is normal. The lungs are well expanded without focal areas of consolidation, pneumot horax, or pleural effusions. IMPRESSION: No radiographic evidence of acute cardiopulmonary process. POS: [facility]
--- NOTE | 2017-04-17 09:26 | PRG ---
DATE OF SERVICE: 04/17/2017 The patient is of Dr. Dann Mcgill. SUBJECTIVE: The patient feels well with only complaints of recurrent cough and has been up moving w [facility] physical therapy with no complaints of chest pain or shortness of breath. OBJECTIVE: LUNGS: Show a few rhonchi, clear on coughing. No rales. CARDIAC EXAMINATION: Shows regular rhythm. No gallops or murmurs. ABDOMEN: Soft and nontender. NEUROLOGICAL: Shows right hemiparesis improving as the patient is able walk 175 feet with a rolling walker. X-RAY FINDINGS: Chest x-ray done this morning shows no evidence of infiltrate. ASSESSMENT: 1. Resolving cerebrovascular accident with right hemiparesis. 2. Recurrent cough, possibly due to aspiration and we will discuss with speech therapy and PCP Sabino sherman. 3. Diabetes type 2, well controlled. PLAN: Continue Accu-Cheks and sliding scale coverage. Continue deep venous thrombosis, stress ulce r prophylaxis. Continue PT and OT. Continue to monitor cough, may consult speech therapy.
[2017-04-17] MEDS: Aggrenox 200-25mg CAP PO SCH ×2 (09:30→21:23)
[2017-04-17] MEDS: Docusate 100 MG CAP PO SCH ×2 (09:30→21:23)
[2017-04-17] MEDS: Famotidine 20 MG TAB PO SCH ×2 (09:30→21:23)
[2017-04-17] MEDS: Lisinopril 20 MG TAB PO SCH (09:30)
[2017-04-17] MEDS: Pravastatin Sodium 20 MG TAB PO SCH (21:23)
[2017-04-17] MEDS: Guaifenesin DM 100-10/5 ML UDCUP PO PRN (21:24)
[2017-04-18] MEDS: Aggrenox 200-25mg CAP PO SCH ×2 (09:01→20:08)
[2017-04-18] MEDS: Lisinopril 20 MG TAB PO SCH (09:02)
[2017-04-18] MEDS: Famotidine 20 MG TAB PO SCH ×2 (09:02→20:08)
[2017-04-18] MEDS: Docusate 100 MG CAP PO SCH ×2 (09:02→20:08)
[2017-04-18] MEDS: Pravastatin Sodium 20 MG TAB PO SCH (20:07)
[2017-04-18] MEDS: Guaifenesin DM 100-10/5 ML UDCUP PO PRN (23:38)
--- NOTE | 2017-04-19 06:21 | PRG ---
DATE OF SERVICE: 04/18/2017 SUBJECTIVE: The patient feels well with decreasing cough, increasing transfer therapy, has no fever, chills or shortness of breath. OBJECTIVE: Shows temperature 97.6, pulse 59, respirations 18, O2 sats 98% on room air, blood pressu re 131/59. Chest x-ray showed no acute infiltrates. Lungs appear to be clear with no rhonchi or ra les today. Cardiac examination displays regular rhythm. Abdomen is soft and nontender. Neurologic al shows right hemiparesis, slightly improving. ASSESSMENT: 1. Resolving cerebrovascular accident with right hemiparesis. 2. Recurrent cough with no evidence of aspiration appeared to be improving. 3. Type 2 diabetes, controlled to goal. PLAN: 1. Continue PT, OT. 2. Continue Accu-Cheks. 3. Continue DVT and stress ulcer prophylaxis. 4. Continue to monitor cough.
[2017-04-19] MEDS: Docusate 100 MG CAP PO SCH ×2 (09:13→21:31)
[2017-04-19] MEDS: Famotidine 20 MG TAB PO SCH ×2 (09:14→21:29)
[2017-04-19] MEDS: Lisinopril 20 MG TAB PO SCH (09:14)
[2017-04-19] MEDS: Aggrenox 200-25mg CAP PO SCH ×2 (09:15→21:29)
[2017-04-19] MEDS: HumaLOG 300 UNITS/3 ML VIAL SC PRN (11:33)
--- NOTE | 2017-04-19 13:31 | PRG ---
DATE OF SERVICE: 04/19/2017 SUBJECTIVE: Ms. Page is doing well. Denies any complaints, resting comfortably, occasional coug h, no fever or chills. Chest x-ray was negative. OBJECTIVE: VITAL SIGNS: She is afebrile, heart rate 58, respirations 16, blood pressure 140/67. CARDIOVASCULAR: S1, S2 plus. RESPIRATORY: Normal vesicular breath sounds. ABDOMEN: Soft, nontender, bowel sounds heard in all quadrants. EXTREMITIES: Without cyanosis or clubbing. CENTRAL NERVOUS SYSTEM: Improving right-sided weakness. LABORATORY VALUES: Blood sugars are 129, 168, 179 and 157. Her chest x-ray shows no acute cardiopu lmonary process. IMPRESSION: 1. Cough, likely viral versus allergies, continue cough medicine. 2. Recent cerebrovascular accident with improving right-sided weakness. 3. Diabetes mellitus type 2 well controlled. 4. Hypertension. 5. Dyslipidemia. 6. Degenerative joint disease. PLAN: 1. Continue current medications. 2. Nutritional support. 3. Deep venous thrombosis prophylaxis. 4. Decubitus precautions. 5. Stress ulcer prophylaxis. 6. Routine laboratory values. 7. Physical therapy. 8. I discussed with the patient and all questions answered.
[2017-04-19] MEDS: Pravastatin Sodium 20 MG TAB PO SCH (21:29)
[2017-04-19] MEDS: Guaifenesin DM 100-10/5 ML UDCUP PO PRN (21:31)
[2017-04-20] MEDS: Lisinopril 20 MG TAB PO SCH (08:17)
[2017-04-20] MEDS: Aggrenox 200-25mg CAP PO SCH ×2 (08:17→20:34)
[2017-04-20] MEDS: Docusate 100 MG CAP PO SCH ×2 (08:17→20:34)
[2017-04-20] MEDS: Famotidine 20 MG TAB PO SCH ×2 (08:17→20:34)
--- NOTE | 2017-04-20 14:15 | PRG ---
DATE OF SERVICE: 04/20/2017 SUBJECTIVE: Ms. Page is doing well. Denies any complaints, resting comfortably. She again is w ondering when she can go home and I advised her we will see what case conference they decide. She r travislly needs some help at home due to her balance issues from my discussion with therapy yesterday. OBJECTIVE: VITAL SIGNS: She is afebrile, heart rate is 58, respirations 18, oxygen saturation 98%, blood press ure 141/67. CARDIOVASCULAR: S1, S2 plus. RESPIRATORY: Normal vesicular breath sounds. ABDOMEN: Soft, nontender, bowel sounds heard in all quadrants. EXTREMITIES: Without cyanosis or clubbing. CENTRAL NERVOUS SYSTEM: Improving right-sided weakness. LABORATORY VALUES: Blood sugars are 157, 148, 187, and 137. IMPRESSION: 1. Left hemispheric cerebrovascular accident with right-sided weakness, improving. 2. Diabetes mellitus type 2. 3. Hypertension. 4. Dyslipidemia. 5. Improving cough. 6. Hemorrhoids. PLAN: 1. Continue current medications. 2. High fiber diet. 3. 1800 calorie heart healthy ADA diet. 4. Accu-Cheks with sliding scale coverage. 5. Physical therapy and occupational therapy. 6. Deep venous thrombosis prophylaxis. 7. Decubitus precautions. 8. Stress ulcer prophylaxis. 9. Routine laboratory values. 10. No family at the bedside.
[2017-04-20] MEDS: HumaLOG 300 UNITS/3 ML VIAL SC PRN (16:15)
[2017-04-20] MEDS: Pravastatin Sodium 20 MG TAB PO SCH (20:34)
[2017-04-20] MEDS: Guaifenesin DM 100-10/5 ML UDCUP PO PRN (20:34)
[2017-04-21] MEDS: Docusate 100 MG CAP PO SCH ×2 (08:06→20:52)
[2017-04-21] MEDS: Aggrenox 200-25mg CAP PO SCH ×2 (08:07→20:52)
[2017-04-21] MEDS: Famotidine 20 MG TAB PO SCH ×2 (08:08→20:52)
[2017-04-21] MEDS: Lisinopril 20 MG TAB PO SCH (08:08)
--- NOTE | 2017-04-21 13:31 | PRG ---
DATE OF SERVICE: 04/21/2017 SUBJECTIVE: Ms. Page is doing well. Denies any complaints, resting comfortably, tolerating her therapy. OBJECTIVE: VITAL SIGNS: She is afebrile, heart rate 57, respirations 20, blood pressure 123/56. CARDIOVASCULAR: S1, S2 plus. RESPIRATORY: Normal vesicular breath sounds. ABDOMEN: Soft, nontender, bowel sounds heard in all quadrants. EXTREMITIES: Without cyanosis or clubbing. CENTRAL NERVOUS SYSTEM: Improving right-sided weakness. IMPRESSION: 1. Left hemispheric cerebrovascular accident with right-sided weakness, improving. 2. Diabetes mellitus type 2. 3. Hypertension. 4. Dyslipidemia. 5. Degenerative joint disease. PLAN: 1. Resume metformin 500 mg b.i.d. 2. Continue current medications. 3. 1800 calorie Heart healthy, ADA diet. 4. DVT and stress ulcer prophylaxis. 5. Decubitus precautions. 6. Routine laboratory values. 7. Physical therapy. 8. No family at the bedside.
[2017-04-21] MEDS: Glimepiride 2 MG TAB PO SCH (17:33)
[2017-04-21] MEDS: Pravastatin Sodium 20 MG TAB PO SCH (20:52)
[2017-04-22] MEDS: Aggrenox 200-25mg CAP PO SCH ×2 (08:31→20:55)
[2017-04-22] MEDS: Famotidine 20 MG TAB PO SCH ×2 (08:33→20:55)
[2017-04-22] MEDS: Docusate 100 MG CAP PO SCH ×2 (08:33→20:55)
[2017-04-22] MEDS: Lisinopril 20 MG TAB PO SCH (08:33)
[2017-04-22] MEDS: Glimepiride 2 MG TAB PO SCH ×2 (08:33→16:50)
[2017-04-22] MEDS: Acetaminophen 325 MG TAB PO PRN (08:37)
--- NOTE | 2017-04-22 13:31 | PRG ---
DATE OF SERVICE: 04/22/2017 SUBJECTIVE: Ms. Page is doing well. Denies any complaints, resting comfortably, tolerating her therapy, spoke with one of her daughters and the plan apparently is for her to go when she is discha rged to live with her other daughter who was going to be there with her at all times. Her blood sug ars are much improved with restarting of her Amaryl. OBJECTIVE: VITAL SIGNS: She is afebrile, heart rate 70, respirations 18, and blood pressure 123/74. CARDIOVASCULAR: S1, S2 plus. RESPIRATORY SYSTEM: Normal vesicular breath sounds. ABDOMEN: Soft and nontender, bowel sounds heard in all quadrants. EXTREMITIES: Without cyanosis or clubbing. IMPRESSION: 1. Cerebrovascular accident with right-sided weakness improving. 2. Diabetes mellitus type 2, improved with the Amaryl. 3. Hypertension. 4. Dyslipidemia. 5. Degenerative joint disease. PLAN: 1. Continue current medications. 2. Nutritional support. 3. Deep venous thrombosis prophylaxis. 4. Decubitus precautions. 5. Stress ulcer prophylaxis. 6. Discharge planning.
[2017-04-22] MEDS: HumaLOG 300 UNITS/3 ML VIAL SC PRN (16:49)
[2017-04-22] MEDS ORDERED: Milk Of Magnesia 30 ML UDCUP PO PRN (17:28)
[2017-04-22] MEDS ORDERED: Simethicone Chewable 80 MG TAB PO PRN (17:46)
[2017-04-22] MEDS: Pravastatin Sodium 20 MG TAB PO SCH (20:55)
[2017-04-23 05:11] LABS: #Eosinphils 0.1 thou/uL (0.0-0.7); #Lymphocytes 2.1 thou/uL (1.20-3.40); #Monocytes 0.3 thou/uL (0.11-0.59); %Basophils 0.8 % (0.0-1.0); %Eosinophils 2.4 % (0.0-10.0); %Lymphocytes 37.4 % (21.0-51.0); %Monocytes 5.5 % (0.0-10.0); Hemoglobin 12.1 g/dL (12.0-16.0); Mean Corpuscular HGB CONC 32.4 g/dL (32.0-36.0); Mean Corpuscular Hemoglobin 26.3 pg (27.0-31.0); Mean Corpuscular Volume 81.2 fl (81.0-99.0); Mean Platelet Volume 6.6 fL (7.4-10.4); Platelet Count 202 thou/uL (130-400); White Blood Cell (WBC) Count 5.6 thou/uL (4.8-10.8)
[2017-04-23 05:32] LABS: Anion Gap 11 mmol/L (10-20); BUN (Urea Nitrogen) 28 mg/dL (9.8-20.1); Calc. Creatinine Clearance 42 mL/min (70-130); Calcium 9.2 mg/dL (7.8-10.44); Carbon Dioxide 24 mmol/L (23-31); Chloride 110 mmol/L (98-107); Estimated GFR-MDRD 52; Glucose 123 mg/dL (83-110); Potassium 4.3 mmol/L (3.5-5.1); Sodium 141 mmol/L (136-145)
[2017-04-23] MEDS: Docusate 100 MG CAP PO SCH ×2 (08:26→20:55)
[2017-04-23] MEDS: Aggrenox 200-25mg CAP PO SCH ×2 (08:26→20:55)
[2017-04-23] MEDS: Lisinopril 20 MG TAB PO SCH (08:27)
[2017-04-23] MEDS: Glimepiride 2 MG TAB PO SCH ×2 (08:27→16:51)
[2017-04-23] MEDS: Acetaminophen 325 MG TAB PO PRN (08:27)
[2017-04-23] MEDS: Famotidine 20 MG TAB PO SCH ×2 (08:27→20:55)
[2017-04-23] MEDS: Pravastatin Sodium 20 MG TAB PO SCH (20:55)
[2017-04-24] MEDS: Glimepiride 2 MG TAB PO SCH ×2 (08:05→16:55)
[2017-04-24] MEDS: Aggrenox 200-25mg CAP PO SCH ×2 (08:30→20:42)
[2017-04-24] MEDS: Famotidine 20 MG TAB PO SCH ×2 (08:30→20:42)
[2017-04-24] MEDS: Docusate 100 MG CAP PO SCH ×2 (08:31→20:42)
[2017-04-24] MEDS: Lisinopril 20 MG TAB PO SCH (08:32)
--- NOTE | 2017-04-24 09:42 | PRG ---
DATE OF SERVICE: 04/24/[address] Dann Mcgill. SUBJECTIVE: The patient feels well with no complaints, cooperating with therapy. No cough, shortne ss of breath is stable. OBJECTIVE: VITAL SIGNS: Shows blood pressure is 130/59, pulse 64, temperature 97.2, respirations 16, O2 sats 9 7%. LUNGS: Clear. CARDIAC: Examination shows regular rhythm. ABDOMEN: Soft, nontender. LABORATORY DATA: White count 5,600, hematocrit 37, hemoglobin 12. Accu-Cheks 119-178. ASSESSMENT: 1. Resolving cerebrovascular accident with right-sided weakness, stable. 2. Type 2 diabetes, stable. 3. Hypertension. PLAN: 1. Continue PT, OT. 2. Continue DVT prophylaxis and stress ulcer prophylaxis.
[2017-04-24] MEDS: HumaLOG 300 UNITS/3 ML VIAL SC PRN (16:56)
[2017-04-24] MEDS: Pravastatin Sodium 20 MG TAB PO SCH (20:43)
[2017-04-25] MEDS: Glimepiride 2 MG TAB PO SCH ×2 (08:05→16:50)
--- NOTE | 2017-04-25 08:29 | PRG ---
DATE OF SERVICE: 04/25/2017 SUBJECTIVE: The patient feels well, sitting up in chair, brushing her teeth, preparing for discharg e in the next several days. Denies any change in her mild right-sided weakness, denies any cough, s hortness of breath. OBJECTIVE: VITAL SIGNS: Shows blood pressure is 140/65, temperature 96, pulse 67, respirations 18, O2 sat 100% . LUNGS: Clear. CARDIAC: Examination showed regular rhythm. ABDOMEN: Soft and nontender. NEUROLOGIC: Shows mild right-sided weakness. ASSESSMENT: Resolving cerebrovascular accident with mild right hemiparesis. PLAN: Stable to be discharged home in the next 1-2 days in family care.
[2017-04-25] MEDS: Lisinopril 20 MG TAB PO SCH (09:15)
[2017-04-25] MEDS: Docusate 100 MG CAP PO SCH ×2 (09:15→20:20)
[2017-04-25] MEDS: Aggrenox 200-25mg CAP PO SCH ×2 (09:15→20:21)
[2017-04-25] MEDS: Famotidine 20 MG TAB PO SCH ×2 (09:47→20:20)
[2017-04-25] MEDS: Pravastatin Sodium 20 MG TAB PO SCH (20:20)
[2017-04-26] MEDS: Glimepiride 2 MG TAB PO SCH ×2 (07:50→17:00)
[2017-04-26] MEDS: Docusate 100 MG CAP PO SCH ×2 (08:34→21:46)
[2017-04-26] MEDS: Lisinopril 20 MG TAB PO SCH (08:34)
[2017-04-26] MEDS: Aggrenox 200-25mg CAP PO SCH ×2 (08:34→21:46)
[2017-04-26] MEDS: Famotidine 20 MG TAB PO SCH ×2 (08:34→21:46)
[2017-04-26] MEDS ORDERED: FLU VACC TS2017-18 (>65YR) 0.5 ML SYRINGE IM ONE (21:00)
[2017-04-26] MEDS ORDERED: FLU VACC QS2017-18 36 mo. & older 0.5 ML SYRINGE IM ONE (21:00)
[2017-04-26] MEDS ORDERED: Famotidine 20 MG TAB ONE (21:29)
[2017-04-26] MEDS: Pravastatin Sodium 20 MG TAB PO SCH (21:46)
[2017-04-27 07:15] VITALS: TEMP 96.1
[2017-04-27] MEDS: Lisinopril 20 MG TAB PO SCH (08:20)
[2017-04-27] MEDS: Aggrenox 200-25mg CAP PO SCH (08:20)
[2017-04-27] MEDS: Glimepiride 2 MG TAB PO SCH (08:20)
[2017-04-27] MEDS: Docusate 100 MG CAP PO SCH (08:20)
[2017-04-27] MEDS: Famotidine 20 MG TAB PO SCH (08:23)
[2017-04-27 11:25] VITALS: BP 132/58
[2017-04-27] MEDS: HumaLOG 300 UNITS/3 ML VIAL SC PRN (11:46)
--- NOTE | 2017-04-27 14:06 | DIS ---
DATE OF ADMISSION: 04/13/2017 DATE OF DISCHARGE: 04/27/2017 PRINCIPAL DIAGNOSES: 1. Left hemispheric cerebrovascular accident with right-sided weakness, improving. 2. Improving dysphagia. 3. Hypertension, well controlled. 4. Dyslipidemia. 5. Diabetes mellitus type 2. 6. Degenerative joint disease. COMPLICATIONS: None. ADVERSE REACTIONS: None. PROCEDURES: None. CONSULTATIONS: Physical therapy, occupational therapy, and speech therapy. BRIEF HISTORY: This is a very pleasant 77-year-old female, who presented to [facility] on 04/09/2017 with right arm weakness. She was noticed to have a left paramedia n pontine infarction. She was switched from aspirin to Aggrenox. She was transferred [facility]. She has been doing well. She still has some mild dribbling of saliva but again reinforced to family and patient about the recommendation of speech therapy. Unfortunately, speech therapy was un able to do any VitalStim here due to time constraints, but they recommended speech therapy as an out patient. I have written an orders. Family does want a shower chair because they have a tub and she cannot climb in and out of tub, but they have a shower where if she can sit today, he will be able to give her a shower and she will be safe with less risk for falling. No other concerns or question s. PHYSICAL EXAMINATION: VITAL SIGNS: On the day of discharge, she is afebrile, heart rate is 74, respirations are 18, blood pressure is 132/58 and oxygen saturation is 99% on room air. CARDIOVASCULAR: S1, S2 plus. RESPIRATORY: Normal vesicular breath sounds. ABDOMEN: Soft, nontender, bowel sounds heard in all quadrants. EXTREMITIES: Without cyanosis or clubbing. CENTRAL NERVOUS SYSTEM: Improving weakness in the right arm. LABORATORY VALUES: Last laboratory values, white count was 5.6 on 04/23/2017. H\T\H is 12.1 and 37 .4. Blood sugars are 149, 175, 109 and 166 and again on 04/23/2017, sodium 141, potassium 4.3, BUN and creatinine 28 and 1.02. DISCHARGE MEDICATIONS: 1. Aggrenox 1 tablet b.i.d. 2. Amlodipine 5 mg at night. 3. Lisinopril 20 mg in the morning. 4. Pepcid 20 mg b.i.d. 5. Amaryl 2 mg b.i.d. 6. Pravastatin 10 mg daily. Prescription has been given for outpatient speech therapy. She is going to stay with one of her [place] arian, who is going to be there 15/02. Daughter is aware that mom needs standby assist. Instructannette zhou for home speech therapy has also been given to the family. She is to follow up in my office in 2 weeks. Prescriptions have been sent in to [facility] except the Amaryl, which she has at home. Total time spent on this discharge 40 minutes.
== END 2017-04-27 14:30 | disposition home or self-care (01) | DRG 65 ==
LOC: NAV ACUTE 16:24
PROVIDERS: ADMIT Internal Medicine; ATTEND Internal Medicine
DX: I63.9 Cerebral infarction, unspecified (principal); G81.91 Hemiplegia, unspecified affecting right dominant side; E11.9 Type 2 diabetes mellitus without complications; I10 Essential (primary) hypertension; E78.5 Hyperlipidemia, unspecified; M19.90 Unspecified osteoarthritis, unspecified site; K64.9 Unspecified hemorrhoids; R13.10 Dysphagia, unspecified; Z82.49 Family history of ischemic heart disease and other diseases of the circulatory system; Z83.3 Family history of diabetes mellitus
CPT/HCPCS: 36415; 36416; 71010; 80048; 85025; 90471; 90682; G0008; G8996-GN-CJ; G8997-GN-CJ; Q2036

== ENCOUNTER 2017-05-10 15:28 | Emergency (ER) | payer MEDICARE, MEDICAID ==
[2017-05-10] MEDS ORDERED: traMADol HCl 50 MG TAB ONE (16:01)
== END 2017-05-10 16:30 | disposition home or self-care (01) ==
LOC: NAV ERS 15:28
DX: M54.2 Cervicalgia (principal); I10 Essential (primary) hypertension; E78.5 Hyperlipidemia, unspecified; E10.9 Type 1 diabetes mellitus without complications; Z79.82 Long term (current) use of aspirin; Z79.899 Other long term (current) drug therapy; Z86.73 Personal history of transient ischemic attack (TIA), and cerebral infarction without residual deficits
CPT/HCPCS: 99283

== ENCOUNTER 2017-06-13 12:44 | Emergency (ER) | payer MEDICARE, MEDICAID ==
[2017-06-13 13:16] LABS: #Lymphocytes 0.8 thou/uL (1.20-3.40); #Monocytes 0.3 thou/uL (0.11-0.59); #Neutrophils 4.4 thou/uL (1.40-6.50); %Basophils 0.2 % (0.0-1.0); %Eosinophils 0.1 % (0.0-10.0); %Lymphocytes 15.1 % (21.0-51.0); %Monocytes 4.8 % (0.0-10.0); %Neutrophils 79.8 % (42.0-75.0); Hemoglobin 14.5 g/dL (12.0-16.0); Mean Corpuscular HGB CONC 32.6 g/dL (32.0-36.0); Mean Corpuscular Hemoglobin 28.4 pg (27.0-31.0); Mean Platelet Volume 6.9 fL (7.4-10.4); Platelet Count 214 thou/uL (130-400); RBC Distribution Width 14.1 % (11.5-14.5); Red Blood Cell (RBC) Count 5.11 mill/uL (4.20-5.40); White Blood Cell (WBC) Count 5.5 thou/uL (4.8-10.8)
[2017-06-13 13:36] LABS: ALT (SGPT) 19 U/L (8-55); AST (SGOT) 21 U/L (5-34); Albumin 4.4 g/dL (3.4-4.8); Alkaline Phosphatase 112 U/L (40-150); Anion Gap 16 mmol/L (10-20); BUN (Urea Nitrogen) 21 mg/dL (9.8-20.1); Bilirubin, Total 0.5 mg/dL (0.2-1.2); Calc. Creatinine Clearance 0 mL/min (70-130); Calcium 9.3 mg/dL (7.8-10.44); Carbon Dioxide 19 mmol/L (23-31); Chloride 110 mmol/L (98-107); Estimated GFR-MDRD 71; Globulin 3.2 g/dL (2.4-3.5); Glucose 179 mg/dL (83-110); Protein, Total 7.6 g/dL (6.0-8.3); Sodium 142 mmol/L (136-145)
[2017-06-13] MEDS ORDERED: Potassium Chloride 20 MEQ TAB ONE (13:52)
[2017-06-13] MEDS ORDERED: Sodium Chloride 0.9% 1,000 ML ONE (13:52)
[2017-06-13 14:37] LABS: Bilirubin Negative (Negative); Blood, Urine Negative (Negative); Clarity Clear (Clear); Glucose, Urine (Dipstick) 100 mg/dL (Negative); Leukocyte Negative (Negative); Nitrite Negative (Negative); Protein, Urine (Dipstick) Negative (Neg-Trace); Urobilinogen 0.2 mg/dL (0.2-1.0)
== END 2017-06-13 15:02 | disposition home or self-care (01) ==
LOC: NAV ERS 12:44
DX: E10.649 Type 1 diabetes mellitus with hypoglycemia without coma (principal); E78.5 Hyperlipidemia, unspecified; I10 Essential (primary) hypertension; Z79.82 Long term (current) use of aspirin; Z79.84 Long term (current) use of oral hypoglycemic drugs; Z79.899 Other long term (current) drug therapy
CPT/HCPCS: 36416; 80053; 81003; 85025; 87086; 96360; J7050

== ENCOUNTER 2017-08-16 12:55 | Emergency (ER) | payer MEDICARE, MEDICAID ==
[2017-08-16] MEDS ORDERED: Sodium Chloride 0.9% 1,000 ML ONE (13:09)
[2017-08-16] MEDS ORDERED: Acetaminophen 500 MG TAB ONE (13:10)
--- NOTE | 2017-08-16 13:52 | RAD ---
PORTABLE CHEST: Date: 08/16/17 HISTORY: Cough and shortness of breath. COMPARISON: 07/31/17. FINDINGS: Lung paulson remain clear. No infiltrate identified. Heart size mildly prominent. No evidence of vascu lar congestion or edema. IMPRESSION: No acute findings or significant interval change noted. POS: [facility]
[2017-08-16 14:00] LABS: ALT (SGPT) 14 U/L (8-55); AST (SGOT) 16 U/L (5-34); Albumin 4.1 g/dL (3.4-4.8); Alkaline Phosphatase 97 U/L (40-150); Anion Gap 16 mmol/L (10-20); BUN (Urea Nitrogen) 26 mg/dL (9.8-20.1); Bilirubin, Total 0.3 mg/dL (0.2-1.2); Calc. Creatinine Clearance 0 mL/min (70-130); Calcium 8.9 mg/dL (7.8-10.44); Carbon Dioxide 23 mmol/L (23-31); Chloride 106 mmol/L (98-107); Estimated GFR-MDRD 57; Glucose 64 mg/dL (83-110); Potassium 3.9 mmol/L (3.5-5.1); Protein, Total 7.1 g/dL (6.0-8.3); Sodium 141 mmol/L (136-145)
[2017-08-16 14:11] LABS: Eosinophils 1 % (0-10); Hemoglobin 12.5 g/dL (12.0-16.0); Lymphocytes 18 % (21-51); MDiff Complete? YES; Mean Corpuscular HGB CONC 31.9 g/dL (32.0-36.0); Mean Corpuscular Hemoglobin 27.9 pg (27.0-31.0); Mean Corpuscular Volume 87.3 fl (81.0-99.0); Mean Platelet Volume 7.9 fL (7.4-10.4); Monocytes 12 % (0-10); Neutrophil 69 % (42-75); PLT Morphology Comment Appears Adequate; Platelet Count 172 thou/uL (130-400); RBC Distribution Width 11.5 % (11.5-14.5); Red Blood Cell (RBC) Count 4.49 mill/uL (4.20-5.40); White Blood Cell (WBC) Count 4.7 thou/uL (4.8-10.8)
[2017-08-16] MEDS ORDERED: Oseltamivir 75 MG CAP ONE (14:39)
[2017-08-16] MEDS ORDERED: Dextrose 50% Abboject 50 ML SYRINGE ONE (14:46)
== END 2017-08-16 15:35 | disposition home or self-care (01) ==
LOC: NAV ERS 12:55
DX: E10.649 Type 1 diabetes mellitus with hypoglycemia without coma (principal); J11.1 Influenza due to unidentified influenza virus with other respiratory manifestations; E78.5 Hyperlipidemia, unspecified; I10 Essential (primary) hypertension; Z79.82 Long term (current) use of aspirin; Z79.84 Long term (current) use of oral hypoglycemic drugs; Z79.899 Other long term (current) drug therapy; Z86.73 Personal history of transient ischemic attack (TIA), and cerebral infarction without residual deficits
CPT/HCPCS: 36416; 71045; 80053; 85025; 96361; 96374; J7050

== ENCOUNTER 2018-07-19 12:39 | Emergency (ER) | payer MEDICARE, MEDICAID ==
[2018-07-19 13:54] LABS: Bilirubin Negative (Negative); Blood, Urine Negative (Negative); Clarity Clear (Clear); Glucose, Urine (Dipstick) Negative (Negative); Leukocyte Negative (Negative); Nitrite Negative (Negative); Protein, Urine (Dipstick) Negative (Neg-Trace); Specific Gravity, Urine 1.025 (1.005-1.030)
[2018-07-19 14:02] LABS: #Basophils 0.1 thou/uL (0.0-0.2); #Lymphocytes 0.7 thou/uL (1.20-3.40); #Monocytes 0.5 thou/uL (0.11-0.59); #Neutrophils 4.3 thou/uL (1.40-6.50); %Basophils 1.5 % (0.0-1.0); %Eosinophils 0.2 % (0.0-10.0); %Lymphocytes 12.1 % (21.0-51.0); %Monocytes 8.1 % (0.0-10.0); %Neutrophils 78.2 % (42.0-75.0); Hemoglobin 12.3 g/dL (12.0-16.0); Mean Corpuscular HGB CONC 34.2 g/dL (32.0-36.0); Mean Corpuscular Volume 84.7 fL (78.0-98.0); Mean Platelet Volume 6.6 fL (7.4-10.4); Platelet Count 195 thou/uL (130-400); RBC Distribution Width 11.7 % (11.5-14.5); Red Blood Cell (RBC) Count 4.25 mill/uL (4.20-5.40); White Blood Cell (WBC) Count 5.5 thou/uL (4.8-10.8)
--- NOTE | 2018-07-19 14:03 | RAD ---
PORTABLE CHEST 1 VIEW: Date: 07/19/18 Time: 1303 hours HISTORY: Cough, congestion, and wheezing. FINDINGS/IMPRESSION: Comparison made with exam of 08/16/17. The heart size is stable. The lungs are well expanded without focal areas of consolidation, pneumotho races, tarsha pulmonary edema, or pleural effusions. POS: [facility]
[2018-07-19 14:12] LABS: Anion Gap 13 mmol/L (10-20); BUN (Urea Nitrogen) 19 mg/dL (9.8-20.1); Calc. Creatinine Clearance 0 mL/min (70-130); Calcium 9.4 mg/dL (7.8-10.44); Carbon Dioxide 23 mmol/L (23-31); Chloride 104 mmol/L (98-107); Estimated GFR-MDRD 67; Glucose 64 mg/dL (83-110); Potassium 3.1 mmol/L (3.5-5.1); Sodium 137 mmol/L (136-145)
[2018-07-19] MEDS ORDERED: Potassium Chloride 20 MEQ TAB ONE (14:48)
[2018-07-19] MEDS ORDERED: Azithromycin 250 MG TAB ONE (14:49)
[2018-07-19] MEDS ORDERED: Potassium Chloride 20 MEQ TAB PO SCH (15:00)
[2018-07-19] MEDS ORDERED: Azithromycin 250 MG TAB PO SCH (15:15)
== END 2018-07-19 15:00 | disposition home or self-care (01) ==
LOC: NAV ERS 12:39
DX: J06.9 Acute upper respiratory infection, unspecified (principal); Z86.73 Personal history of transient ischemic attack (TIA), and cerebral infarction without residual deficits; E11.9 Type 2 diabetes mellitus without complications; E78.5 Hyperlipidemia, unspecified; I10 Essential (primary) hypertension; Z79.899 Other long term (current) drug therapy
CPT/HCPCS: 71045; 80048; 81003; 85025; 87804

== ENCOUNTER 2018-07-24 09:22 | Emergency (ER) | payer MEDICARE, MEDICAID | END 2018-07-24 09:59 | disposition home or self-care (01) | LOC: NAV ERS 09:22 | DX: S16.1XXA Strain of muscle, fascia and tendon at neck level, initial encounter (principal); M62.830 Muscle spasm of back; E11.9 Type 2 diabetes mellitus without complications; E78.5 Hyperlipidemia, unspecified; Z86.73 Personal history of transient ischemic attack (TIA), and cerebral infarction without residual deficits; I10 Essential (primary) hypertension; Z79.899 Other long term (current) drug therapy; X58.XXXA Exposure to other specified factors, initial encounter | CPT/HCPCS: 99283 ==

== ENCOUNTER 2018-10-17 09:06 | Outpatient (CLI) | payer MEDICARE, MEDICAID ==
[~2018-10-17 09:06] MED LIST: Iopamidol 370 76% 100 ML VIAL ONE
--- NOTE | 2018-10-17 12:52 | CT ---
CT NECK WITH CONTRAST: INDICATIONS: Mass, right side of neck. TECHNIQUE: Multiple axial tomograms obtained through neck with IV enhancement. The order stipulates mass, left side of neck, which is apparently an error. FINDINGS: The parotid glands appear normal and symmetric. There is a large, heterogeneous mass involving the right lobe of the thyroid, probably corresponding to the palpable abnormality. This heterogeneous mass with low attenuation center measures up to 4 cm in AP dimension x 4.7 cm in width, in the axial plane. It measures up to 7 cm craniocaudal, in the coronal plane. The left lobe of the thyroid is more normal in size, although there is an abnormal calcification in t he mid left lobe, which is coarse, measuring up to 5 mm. There is also a low density nodule in the l eft lobe, measuring in the 8 mm range, on craniocaudal views. This large thyroid mass is producing mass effect on the trachea and larynx. The nasopharynx appears unremarkable. The oropharynx and hypopharynx are unremarkable. The larynx appears unremarkable. The parapharyngeal space and the retropharyngeal space are unremarkable. The carotid space shows atherosclerotic calcification in both carotid bifurcations. This does appear to produce significant stenosis in the right internal carotid artery, at its origin, which appears t o approach 50% diameter. Recommend correlation with ultrasound velocity studies at this location. Review of the lymph node levels show nonspecific level I submandibular nodes. The level II lymph nod es are unremarkable with the jugulodigastric node on the left measuring up to 1 cm. There is a level III lymph node on the right, posterior to the jugular vein and medial to the sternoc leidomastoid, measuring 1.2 cm in the axial plane. Nonspecific level V lymph nodes bilaterally, which are subcentimeter. Mucosal edema in both maxillary sinuses. Mild degenerative changes in the cervical spine. IMPRESSION: 1. Enlarged, complex mass involving the right lobe of the thyroid corresponds to the palpable neck m ass. Recommend ENT consultation and biopsy. 2. Coarse calcifications, left lobe of thyroid, with small, low density nodule, as described. 3. Atherosclerotic changes in both carotid bulbs. Evidence of moderate stenosis in the right international operations manager al carotid artery. Recommend correlation with Doppler velocities. 4. Mucosal edema in the maxillary sinuses. 5. Nonspecific lymph nodes, as described. POS: [facility]
== END 2018-10-17 09:07 | disposition home or self-care (01) ==
LOC: NAV CT 09:06
PROVIDERS: ATTEND Internal Medicine
DX: Z01.812 Encounter for preprocedural laboratory examination (principal); R22.1 Localized swelling, mass and lump, neck; S16.1XXA Strain of muscle, fascia and tendon at neck level, initial encounter; E07.9 Disorder of thyroid, unspecified; I65.23 Occlusion and stenosis of bilateral carotid arteries
CPT/HCPCS: 36415; 70491; 82565; Q9967

== ENCOUNTER 2018-11-26 19:25 | Emergency (ER) | payer MEDICARE, MEDICAID ==
[2018-11-26] MEDS ORDERED: traMADol HCl 50 MG TAB ONE (19:50)
== END 2018-11-26 19:59 | disposition home or self-care (01) ==
LOC: NAV ERS 19:25
DX: M25.562 Pain in left knee (principal); E11.9 Type 2 diabetes mellitus without complications; E78.5 Hyperlipidemia, unspecified; I10 Essential (primary) hypertension; Z79.899 Other long term (current) drug therapy
CPT/HCPCS: 99283

== ENCOUNTER 2019-01-14 21:15 | Emergency (ER) | payer MEDICARE, MEDICAID ==
[2019-01-14] MEDS ORDERED: Acetaminophen 500 MG TAB ONE (21:49)
== END 2019-01-14 22:07 | disposition home or self-care (01) ==
LOC: NAV ERS 21:15
DX: R07.0 Pain in throat (principal); E11.9 Type 2 diabetes mellitus without complications; E78.5 Hyperlipidemia, unspecified; I10 Essential (primary) hypertension; Z86.73 Personal history of transient ischemic attack (TIA), and cerebral infarction without residual deficits; Z79.899 Other long term (current) drug therapy; Z79.891 Long term (current) use of opiate analgesic
CPT/HCPCS: 99282

== ENCOUNTER 2019-08-04 10:31 | Emergency (ER) | payer MEDICAID, MEDICARE ==
--- NOTE | 2019-08-04 11:34 | RAD ---
XR Ribs Lt>=2 View W/PA CXR History: Injury Comparison: Chest radiograph 2016. Chest radiograph 2018. Findings: Heart size mildly enlarged. No pneumothorax. There are minimally displaced left lateral 8-1 0 rib fractures. Mild vascular calcifications of the splenic artery. No right rib fracture. Impression: Mild-minimally displaced left lateral 8-10th rib fractures. No underlying pneumothorax.
[2019-08-04] MEDS ORDERED: Acetaminophen 325 MG TAB ONE (11:48)
== END 2019-08-04 11:59 | disposition home or self-care (01) ==
LOC: NAV ERS 10:31
DX: S22.42XA Multiple fractures of ribs, left side, initial encounter for closed fracture (principal); E11.9 Type 2 diabetes mellitus without complications; E78.5 Hyperlipidemia, unspecified; E78.00 Pure hypercholesterolemia, unspecified; I10 Essential (primary) hypertension; Z79.899 Other long term (current) drug therapy; Z86.73 Personal history of transient ischemic attack (TIA), and cerebral infarction without residual deficits; W06.XXXA Fall from bed, initial encounter

== ENCOUNTER 2020-06-07 16:20 | Emergency (ER) | payer MEDICARE, MEDICAID ==
[2020-06-07] MEDS ORDERED: Sodium Chloride 0.9% 1,000 ML ONE (17:19)
[2020-06-07] MEDS ORDERED: traMADol HCl 50 MG TAB ONE (17:19)
[2020-06-07 17:36] LABS: #Lymphocytes 1.5 thou/uL (1.20-3.40); #Monocytes 0.3 thou/uL (0.11-0.59); #Neutrophils 4.3 thou/uL (1.40-6.50); %Basophils 0.6 % (0.0-1.0); %Eosinophils 0.8 % (0.0-10.0); %Lymphocytes 24.6 % (21.0-51.0); %Neutrophils 69.1 % (42.0-75.0); Hemoglobin 14.7 g/dL (12.0-16.0); Mean Corpuscular HGB CONC 34.1 g/dL (32.0-36.0); Mean Corpuscular Hemoglobin 30.9 pg (27.0-31.0); Mean Corpuscular Volume 90.6 fL (78.0-98.0); Platelet Count 216 thou/uL (130-400); RBC Distribution Width 11.4 % (11.5-14.5); Red Blood Cell (RBC) Count 4.77 mill/uL (4.20-5.40); White Blood Cell (WBC) Count 6.2 thou/uL (4.8-10.8)
[2020-06-07 17:55] LABS: ALT (SGPT) 15 U/L (8-55); AST (SGOT) 16 U/L (5-34); Albumin 4.6 g/dL (3.4-4.8); Alkaline Phosphatase 80 U/L (40-110); Anion Gap 15 mmol/L (10-20); BUN (Urea Nitrogen) 17 mg/dL (9.8-20.1); Bilirubin, Total 0.5 mg/dL (0.2-1.2); Calc. Creatinine Clearance 0 mL/min (70-130); Calcium 9.4 mg/dL (7.8-10.44); Carbon Dioxide 25 mmol/L (23-31); Chloride 106 mmol/L (98-107); Estimated GFR-MDRD 66; Globulin 2.9 g/dL (2.4-3.5); Glucose 84 mg/dL (83-110); Potassium 3.1 mmol/L (3.5-5.1); Protein, Total 7.5 g/dL (6.0-8.3); Sodium 143 mmol/L (136-145)
[2020-06-07] MEDS ORDERED: Potassium Chloride 20 MEQ TAB ONE (18:29)
[2020-06-07 18:30] LABS: Bilirubin Negative (Negative); Blood, Urine Negative (Negative); Clarity Clear (Clear); Glucose, Urine (Dipstick) Negative (Negative); Ketone, Urine Negative (Negative); Leukocyte Trace (Negative); Nitrite Negative (Negative); Protein, Urine (Dipstick) Negative (Neg-Trace); Specific Gravity, Urine 1.015 (1.005-1.030); Urobilinogen 0.2 mg/dL (Less than 2)
[2020-06-07 18:32] LABS: Bacteria/HPF None Seen HPF (None Seen); RBC/HPF None Seen HPF (0-3); Squamous Epithelial None Seen HPF (0-3); WBC/HPF 0-3 HPF (0-3)
== END 2020-06-07 19:00 | disposition home or self-care (01) ==
LOC: NAV ERS 16:20
DX: R11.2 Nausea with vomiting, unspecified (principal); R19.7 Diarrhea, unspecified; E11.9 Type 2 diabetes mellitus without complications; E78.5 Hyperlipidemia, unspecified; E78.00 Pure hypercholesterolemia, unspecified; I10 Essential (primary) hypertension; Z79.899 Other long term (current) drug therapy
CPT/HCPCS: 80053; 81003; 81015; 85025; 99284; J7050

== ENCOUNTER 2020-08-16 08:56 | Observation (INO) | payer MEDICARE, MEDICAID ==
[2020-08-16] MEDS ORDERED: Dextrose 50% Abboject 50 ML SYRINGE ONE (09:19)
[2020-08-16 09:35] LABS: #Basophils 0.1 thou/uL (0.0-0.2); #Eosinphils 0.1 thou/uL (0.0-0.7); #Lymphocytes 2.3 thou/uL (1.20-3.40); #Monocytes 0.4 thou/uL (0.11-0.59); #Neutrophils 3.6 thou/uL (1.40-6.50); %Basophils 1.1 % (0.0-1.0); %Eosinophils 1.3 % (0.0-10.0); %Lymphocytes 36.5 % (21.0-51.0); %Monocytes 5.5 % (0.0-10.0); %Neutrophils 55.6 % (42.0-75.0); Mean Corpuscular Hemoglobin 31.5 pg (27.0-31.0); Mean Corpuscular Volume 89.9 fL (78.0-98.0); Mean Platelet Volume 6.4 fL (7.4-10.4); Platelet Count 232 thou/uL (130-400); RBC Distribution Width 11.4 % (11.5-14.5); Red Blood Cell (RBC) Count 4.45 mill/uL (4.20-5.40); White Blood Cell (WBC) Count 6.4 thou/uL (4.8-10.8)
[2020-08-16] MEDS ORDERED: Ondansetron PF 4 MG/2 ML Vial ONE (09:35)
[2020-08-16 09:46] LABS: PTT 32.6 sec (22.9-36.1)
[2020-08-16 09:53] LABS: ALT (SGPT) 17 U/L (8-55); AST (SGOT) 14 U/L (5-34); Albumin 4.5 g/dL (3.4-4.8); Alkaline Phosphatase 74 U/L (40-110); Anion Gap 18 mmol/L (10-20); BUN (Urea Nitrogen) 19 mg/dL (9.8-20.1); Bilirubin, Total 0.5 mg/dL (0.2-1.2); Calc. Creatinine Clearance 0 mL/min (70-130); Calcium 9.2 mg/dL (7.8-10.44); Carbon Dioxide 22 mmol/L (23-31); Chloride 106 mmol/L (98-107); Globulin 2.9 g/dL (2.4-3.5); Glucose 63 mg/dL (83-110); Lipase 23 U/L (8-78); Magnesium 2.1 mg/dL (1.6-2.6); Potassium 3.5 mmol/L (3.5-5.1); Protein, Total 7.4 g/dL (5.8-8.1); Sodium 142 mmol/L (136-145)
[2020-08-16 10:24] LABS: Bilirubin Negative (Negative); Blood, Urine Negative (Negative); Clarity Clear (Clear); Glucose, Urine (Dipstick) 500 mg/dL (Negative); Ketone, Urine Negative (Negative); Leukocyte Trace (Negative); Nitrite Negative (Negative); Protein, Urine (Dipstick) Negative (Neg-Trace); Urobilinogen 0.2 mg/dL (Less than 2)
[2020-08-16 10:25] LABS: Bacteria/HPF Rare-Few HPF (None Seen); Mucous/LPF Rare LPF (<2+); RBC/HPF 0-3 HPF (0-3); Squamous Epithelial 0-3 HPF (0-3)
--- NOTE | 2020-08-16 10:26 | RAD ---
CHEST 1 VIEW: Date: 08/16/2020 HISTORY: Chest pain. Weakness. COMPARISON: Radiograph dated 07/19/2018. FINDINGS: Lungs are clear. No pneumothorax or effusion. Cardiac silhouette and mediastinal contours are within normal limits. No acute osseous abnormality. IMPRESSION: No acute intrathoracic abnormality. POS: [facility]
[2020-08-16] MEDS ORDERED: Aspirin Chewable 81 MG TAB ONE (11:32)
[2020-08-16 13:04] LABS: Troponin I Less than 0.010 ng/mL (< 0.028)
[2020-08-16 14:34] LABS: SARS-CoV-2 NAA Rapid Test Not Detected (NotDetected)
[2020-08-16 15:09] VITALS: BMI 22.8
[2020-08-16] MEDS ORDERED: Acetaminophen 325 MG TAB PO PRN (15:15)
[2020-08-16] MEDS ORDERED: Ondansetron PF 4 MG/2 ML Vial IVP PRN (15:15)
[2020-08-16] MEDS ORDERED: Ondansetron ODT 4 MG TAB PO PRN ×2 (15:15→16:36)
[2020-08-16 15:58] LABS: Troponin I 0.011 ng/mL (< 0.028)
[2020-08-16] MEDS ORDERED: traMADol HCl 50 MG TAB PO PRN (16:38)
[2020-08-16] MEDS ORDERED: HumaLOG 300 UNITS/3 ML VIAL SC PRN ×2 (16:45)
[2020-08-16] MEDS ORDERED: Dextrose 5% in Water 1,000 ML IV PRN (16:45)
[2020-08-16] MEDS ORDERED: Dextrose 50% Abboject 50 ML SYRINGE IVP PRN (16:45)
[2020-08-16] MEDS: Aggrenox 200-25mg CAP PO SCH (20:26)
[2020-08-17] MEDS ORDERED: Amlodipine 5 MG TAB PO SCH (09:00)
[2020-08-17] MEDS ORDERED: Potassium Chloride 10 MEQ TAB PO SCH (09:00)
[2020-08-17] MEDS ORDERED: Lisinopril 20 MG TAB PO SCH (09:00)
[2020-08-17] MEDS ORDERED: Meloxicam 7.5 MG TAB PO SCH (09:00)
[2020-08-17 09:03] VITALS: BP 118/58; TEMP 97.4
[2020-08-17] MEDS: Aggrenox 200-25mg CAP PO SCH (09:04)
--- NOTE | 2020-08-19 01:40 | SS ---
DATE OF ADMISSION: 08/16/2020 DATE OF DISCHARGE: 08/17/2020 PRINCIPAL DIAGNOSIS: Atypical chest pain. SECONDARY DIAGNOSES: 1. Hypoglycemia. 2. Diabetes mellitus type 2. 3. Hypertension. 4. Dyslipidemia. 5. Degenerative joint disease. 6. 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 COMPLICATIONS: None. ADVERSE REACTIONS: None. PROCEDURES: None. CONSULTATIONS: None. HOSPITAL COURSE: The patient was admitted as she presented to the ER feeling weak. Incidental check on her blood sugars showed it to be 40. She was given dextrose and some orange juice and she felt better. She also complained of some chest pain, which was reproducible, troponin was negative, but given her hypoglycemia and the atypical chest pain, we decided to admit her to the hospital for observation. Her serial enzymes were negative. Telemetry did not show any changes. Her Amaryl was held. She had no further episodes of hypoglycemia. She was tolerating p.o. intake. She was deemed stable for discharge to home on her current medications except to discontinue the Amaryl and monitor closely. She is to follow up in my office in a week. PAST SURGICAL HISTORY: None. FAMILY HISTORY: Positive for diabetes and hypertension. PSYCHOSOCIAL HISTORY: Lives with her daughter. Denies any tobacco, alcohol, or recreational drug abuse. REVIEW OF SYSTEMS: CARDIOVASCULAR: Does complain of some chest pain, more in the chest wall area and reproducible. Denies any shortness of breath, palpitations, PND, orthopnea, or pedal edema. RESPIRATORY: Denies any chronic cough, expectoration, or pleuritic-type chest pain. GASTROINTESTINAL: Denies any nausea, vomiting, diarrhea, constipation, hematemesis, melena, hematochezia. GENITOURINARY: System denies any frequency, urgency, dysuria, hematuria. CENTRAL NERVOUS SYSTEM: Denies any focal numbness, weakness, or fainting spells. ENT: Denies any changes with speech, vision, hearing, or swallowing. SKIN: Denies any rash. EXTREMITIES: Occasional joint pains. MEDICATIONS: At home, she is supposed to be taking the following medications: 1. Norvasc 10 mg daily. 2. Aggrenox 1 capsule b.i.d. 3. Lisinopril 40 daily. 4. Meloxicam 7.5 mg daily. 5. Potassium 10 mEq daily. 6. Zocor 10 mg Wednesday, Wednesday, Wednesday. 7. Tramadol 50 mg q.i.d. p.r.n. ALLERGIES: NO KNOWN DRUG ALLERGIES. PHYSICAL EXAMINATION: GENERAL: Very pleasant 80-year-old female who is resting in bed, she just finished her lunch. Denies any questions or concerns. No further chest pain. No family at bedside. VITAL SIGNS: She is afebrile. Heart rate 62, respirations 18, oxygen saturation 98% on room air, blood pressure 118/58. CARDIOVASCULAR: S1, S2 plus. RESPIRATORY: Normal vesicular breath sounds. ABDOMEN: Soft, nontender, bowel sounds heard in all quadrants. EXTREMITIES: Without cyanosis, clubbing. CENTRAL NERVOUS SYSTEM: Grossly nonfocal. LABORATORY DATA: Her white count was 6.4, H and H is 14 and 40. Blood sugars are 90, 155, 63, 104 and 116. Troponin was 0.011. PLAN: 1. Continue her home medications except stop her Amaryl. 2. Heart healthy 1800 calorie ADA diet. 3. Activity as tolerated. 4. Follow up in my office in a week. 5. Monitor blood sugars at home and call me, if she still has hypoglycemic episodes. 6. No family at bedside. Job ID: [id number]
[2020-08-19] MEDS ORDERED: Simvastatin 10 MG TAB PO SCH (09:00)
== END 2020-08-17 16:30 | disposition home or self-care (01) ==
LOC: NAV ERS 08:56 → NAV ACUTE 13:31
PROVIDERS: ADMIT Internal Medicine; ATTEND Internal Medicine
DX: R07.89 Other chest pain (principal); E11.649 Type 2 diabetes mellitus with hypoglycemia without coma; I10 Essential (primary) hypertension; E78.5 Hyperlipidemia, unspecified; M19.90 Unspecified osteoarthritis, unspecified site; I69.351 Hemiplegia and hemiparesis following cerebral infarction affecting right dominant side; Z79.1 Long term (current) use of non-steroidal anti-inflammatories (NSAID); Z79.82 Long term (current) use of aspirin; Z79.84 Long term (current) use of oral hypoglycemic drugs; Z79.899 Other long term (current) drug therapy; Z20.822 Contact with and (suspected) exposure to COVID-19
CPT/HCPCS: 0240U; 36416; 71045; 80053; 81003; 81015; 83605; 83690; 83735; 84484; 85025; 85610; 85730; 93005; 94760; 96374; 96375; 36415-59; G0378; J2405

== ENCOUNTER 2020-10-12 20:14 | Emergency (ER) | payer MEDICARE, MEDICAID ==
[2020-10-12 20:40] LABS: #Basophils 0.1 thou/uL (0.0-0.2); #Eosinphils 0.1 thou/uL (0.0-0.7); #Lymphocytes 1.5 thou/uL (1.20-3.40); #Monocytes 0.3 thou/uL (0.11-0.59); #Neutrophils 3.9 thou/uL (1.40-6.50); %Basophils 1.4 % (0.0-1.0); %Eosinophils 1.1 % (0.0-10.0); %Lymphocytes 26.4 % (21.0-51.0); %Monocytes 4.5 % (0.0-10.0); %Neutrophils 66.6 % (42.0-75.0); Hemoglobin 14.2 g/dL (12.0-16.0); Mean Corpuscular HGB CONC 34.2 g/dL (32.0-36.0); Mean Corpuscular Hemoglobin 31.5 pg (27.0-31.0); Mean Corpuscular Volume 92.1 fL (78.0-98.0); Mean Platelet Volume 6.3 fL (7.4-10.4); Platelet Count 247 thou/uL (130-400); RBC Distribution Width 11.3 % (11.5-14.5); Red Blood Cell (RBC) Count 4.49 mill/uL (4.20-5.40); White Blood Cell (WBC) Count 5.8 thou/uL (4.8-10.8)
[2020-10-12 20:57] LABS: ALT (SGPT) 16 U/L (8-55); AST (SGOT) 16 U/L (5-34); Albumin 4.6 g/dL (3.4-4.8); Alkaline Phosphatase 110 U/L (40-110); Anion Gap 19 mmol/L (10-20); BUN (Urea Nitrogen) 20 mg/dL (9.8-20.1); Bilirubin, Total 0.3 mg/dL (0.2-1.2); Calc. Creatinine Clearance 0 mL/min (70-130); Calcium 9.4 mg/dL (7.8-10.44); Carbon Dioxide 20 mmol/L (23-31); Chloride 105 mmol/L (98-107); Globulin 3.2 g/dL (2.4-3.5); Glucose 196 mg/dL (83-110); Lipase 24 U/L (8-78); Potassium 3.6 mmol/L (3.5-5.1); Protein, Total 7.8 g/dL (5.8-8.1); Sodium 140 mmol/L (136-145)
== END 2020-10-12 23:03 | disposition short-term general hospital (02) ==
LOC: NAV ERS 20:14
DX: R07.9 Chest pain, unspecified (principal); Z86.73 Personal history of transient ischemic attack (TIA), and cerebral infarction without residual deficits; E11.9 Type 2 diabetes mellitus without complications; E78.00 Pure hypercholesterolemia, unspecified; E78.5 Hyperlipidemia, unspecified; I10 Essential (primary) hypertension; Z79.899 Other long term (current) drug therapy; Z79.82 Long term (current) use of aspirin
CPT/HCPCS: 71045; 80053; 83690; 84484; 85025; 93005

== ENCOUNTER 2021-04-11 02:50 | Emergency (ER) | payer MEDICARE, MEDICAID | END 2021-04-11 04:35 | disposition home or self-care (01) | LOC: NAV ERS 02:50 | DX: R51.9 Headache, unspecified (principal); E11.9 Type 2 diabetes mellitus without complications; E78.5 Hyperlipidemia, unspecified; E78.00 Pure hypercholesterolemia, unspecified; I10 Essential (primary) hypertension; Z86.73 Personal history of transient ischemic attack (TIA), and cerebral infarction without residual deficits; Z79.84 Long term (current) use of oral hypoglycemic drugs; Z79.82 Long term (current) use of aspirin | CPT/HCPCS: 99283 ==

== ENCOUNTER 2021-05-20 16:58 | Emergency (ER) | payer MEDICAID, MEDICARE | END 2021-05-20 17:55 | disposition home or self-care (01) | LOC: NAV ERS 16:58 | DX: Z77.098 Contact with and (suspected) exposure to other hazardous, chiefly nonmedicinal, chemicals (principal); E11.9 Type 2 diabetes mellitus without complications; E78.5 Hyperlipidemia, unspecified; E78.00 Pure hypercholesterolemia, unspecified; I10 Essential (primary) hypertension; Z86.73 Personal history of transient ischemic attack (TIA), and cerebral infarction without residual deficits; Z79.899 Other long term (current) drug therapy; Z79.82 Long term (current) use of aspirin | CPT/HCPCS: 99284 ==

== ENCOUNTER 2021-07-12 22:41 | Emergency (ER) | payer MEDICARE, MEDICAID ==
[2021-07-12 23:35] LABS: #Basophils 0.1 thou/uL (0.0-0.2); #Eosinphils 0.1 thou/uL (0.0-0.7); #Lymphocytes 1.6 thou/uL (1.20-3.40); #Monocytes 0.4 thou/uL (0.11-0.59); #Neutrophils 4.3 thou/uL (1.40-6.50); %Basophils 0.8 % (0.0-1.0); %Eosinophils 1.1 % (0.0-10.0); %Lymphocytes 24.4 % (21.0-51.0); %Monocytes 5.6 % (0.0-10.0); %Neutrophils 68.1 % (42.0-75.0); Hemoglobin 13.6 g/dL (12.0-16.0); Mean Corpuscular HGB CONC 33.3 g/dL (32.0-36.0); Mean Corpuscular Hemoglobin 31.1 pg (27.0-31.0); Mean Corpuscular Volume 93.4 fL (78.0-98.0); Mean Platelet Volume 6.8 fL (7.4-10.4); Platelet Count 206 thou/uL (130-400); RBC Distribution Width 11.3 % (11.5-14.5); Red Blood Cell (RBC) Count 4.38 mill/uL (4.20-5.40); White Blood Cell (WBC) Count 6.4 thou/uL (4.8-10.8)
[2021-07-12 23:44] LABS: ALT (SGPT) 14 U/L (8-55); AST (SGOT) 17 U/L (5-34); Albumin 4.2 g/dL (3.4-4.8); Alkaline Phosphatase 81 U/L (40-110); Anion Gap 15 mmol/L (10-20); BUN (Urea Nitrogen) 15 mg/dL (9.8-20.1); Bilirubin, Total 0.4 mg/dL (0.2-1.2); Calc. Creatinine Clearance 0 mL/min (70-130); Calcium 9.8 mg/dL (7.8-10.44); Carbon Dioxide 21 mmol/L (23-31); Chloride 108 mmol/L (98-107); Globulin 3.2 g/dL (2.4-3.5); Glucose 186 mg/dL (83-110); Potassium 3.9 mmol/L (3.5-5.1); Protein, Total 7.4 g/dL (5.8-8.1); Sodium 140 mmol/L (136-145)
[2021-07-12 23:57] LABS: Bilirubin Negative (Negative); Blood, Urine Negative (Negative); Clarity Clear (Clear); Glucose, Urine (Dipstick) Negative (Negative); Ketone, Urine Negative (Negative); Leukocyte Trace (Negative); Nitrite Negative (Negative); Protein, Urine (Dipstick) Negative (Neg-Trace); Urobilinogen 0.2 mg/dL (Less than 2)
[2021-07-12 23:58] LABS: Bacteria/HPF Rare-Few HPF (None Seen); RBC/HPF 0-3 HPF (0-3); Squamous Epithelial 0-3 HPF (0-3); WBC/HPF 0-3 HPF (0-3)
== END 2021-07-13 00:15 | disposition home or self-care (01) ==
LOC: NAV ERS 22:41
DX: R68.83 Chills (without fever) (principal)
CPT/HCPCS: 36415; 71045; 80053; 81003; 81015; 85025

== ENCOUNTER 2021-08-13 19:00 | Emergency (ER) | payer MEDICARE, MEDICAID ==
[2021-08-13 20:06] LABS: #Lymphocytes 1.5 thou/uL (1.20-3.40); #Monocytes 0.5 thou/uL (0.11-0.59); #Neutrophils 6.9 thou/uL (1.40-6.50); %Basophils 0.4 % (0.0-1.0); %Eosinophils 0.4 % (0.0-10.0); %Lymphocytes 17.1 % (21.0-51.0); %Monocytes 5.3 % (0.0-10.0); %Neutrophils 76.8 % (42.0-75.0); Hemoglobin 12.5 g/dL (12.0-16.0); Mean Corpuscular HGB CONC 32.9 g/dL (32.0-36.0); Mean Corpuscular Hemoglobin 30.9 pg (27.0-31.0); Mean Corpuscular Volume 93.8 fL (78.0-98.0); Mean Platelet Volume 5.5 fL (7.4-10.4); Platelet Count 434 thou/uL (130-400); Red Blood Cell (RBC) Count 4.04 mill/uL (4.20-5.40)
[2021-08-13 20:29] LABS: ALT (SGPT) 14 U/L (8-55); AST (SGOT) 14 U/L (5-34); Albumin 3.6 g/dL (3.4-4.8); Alkaline Phosphatase 85 U/L (40-110); Anion Gap 17 mmol/L (10-20); BUN (Urea Nitrogen) 12 mg/dL (9.8-20.1); Bilirubin, Total 0.3 mg/dL (0.2-1.2); Calc. Creatinine Clearance 0 mL/min (70-130); Carbon Dioxide 23 mmol/L (23-31); Chloride 106 mmol/L (98-107); Globulin 3.2 g/dL (2.4-3.5); Glucose 190 mg/dL (83-110); Potassium 3.2 mmol/L (3.5-5.1); Protein, Total 6.8 g/dL (5.8-8.1); Sodium 143 mmol/L (136-145)
[2021-08-13] MEDS ORDERED: Sodium Chloride 0.9% 1,000 ML ONE (20:46)
[2021-08-13 20:51] LABS: Bilirubin Negative (Negative); Blood, Urine Negative (Negative); Clarity Clear (Clear); Glucose, Urine (Dipstick) 100 mg/dL (Negative); Ketone, Urine Negative (Negative); Leukocyte Negative (Negative); Nitrite Negative (Negative); Protein, Urine (Dipstick) Negative (Neg-Trace); Urobilinogen 0.2 mg/dL (Less than 2); pH, Urine 6.5 (5.0-9.0)
[2021-08-13 20:52] LABS: Specific Gravity, Urine 1.004 (1.002-1.036)
[2021-08-13] MEDS ORDERED: cefTRIAXone\\ROCEPHIN 2 GM VIAL ONE (21:11)
[2021-08-13] MEDS ORDERED: Sodium Chloride 0.9% 100 ML ONE (21:11)
[2021-08-13 21:31] LABS: SARS-CoV-2 NAA Rapid Test DETECTED (NotDetected)
[2021-08-13] MEDS ORDERED: Azithromycin 500 MG VIAL ONE (21:38)
[2021-08-13] MEDS ORDERED: Sodium Chloride 0.9% 250 ML 250 ML ONE (21:38)
== END 2021-08-13 22:26 | disposition short-term general hospital (02) ==
LOC: NAV ERS 19:00
DX: U07.1 COVID-19 (principal); A41.9 Sepsis, unspecified organism; J18.1 Lobar pneumonia, unspecified organism; E11.9 Type 2 diabetes mellitus without complications; E78.5 Hyperlipidemia, unspecified; E78.00 Pure hypercholesterolemia, unspecified; I10 Essential (primary) hypertension; Z86.73 Personal history of transient ischemic attack (TIA), and cerebral infarction without residual deficits; Z79.82 Long term (current) use of aspirin; Z79.899 Other long term (current) drug therapy
CPT/HCPCS: 71046; 80053; 81003; 83605; 84484; 85025; 87040; 96365; 96367; J0456; J0696; J3490; J7050; U0002

== ENCOUNTER 2021-09-27 23:23 | Emergency (ER) | payer MEDICARE, MEDICAID ==
[2021-09-27] MEDS ORDERED: Acetaminophen 500 MG TAB ONE (23:59)
== END 2021-09-28 00:07 | disposition home or self-care (01) ==
LOC: NAV ERS 23:23
DX: S46.211A Strain of muscle, fascia and tendon of other parts of biceps, right arm, initial encounter (principal); I10 Essential (primary) hypertension; E11.9 Type 2 diabetes mellitus without complications; E78.5 Hyperlipidemia, unspecified; E78.00 Pure hypercholesterolemia, unspecified; X58.XXXA Exposure to other specified factors, initial encounter; Z86.73 Personal history of transient ischemic attack (TIA), and cerebral infarction without residual deficits
CPT/HCPCS: 99283

== ENCOUNTER 2022-04-22 12:46 | Emergency (ER) | payer MEDICAID, OTHER ==
[2022-04-22 13:29] LABS: #Eosinphils 0.1 thou/uL (0.0-0.7); #Lymphocytes 1.4 thou/uL (1.20-3.40); #Monocytes 0.3 thou/uL (0.11-0.59); #Neutrophils 3.6 thou/uL (1.40-6.50); %Basophils 0.7 % (0.0-1.0); %Eosinophils 1.7 % (0.0-10.0); %Lymphocytes 25.6 % (21.0-51.0); %Monocytes 6.1 % (0.0-10.0); %Neutrophils 65.9 % (42.0-75.0); Hemoglobin 12.7 g/dL (12.0-16.0); Mean Corpuscular HGB CONC 31.7 g/dL (32.0-36.0); Mean Corpuscular Hemoglobin 30.3 pg (27.0-31.0); Mean Corpuscular Volume 95.8 fL (78.0-98.0); Mean Platelet Volume 6.5 fL (7.4-10.4); Platelet Count 224 thou/uL (130-400); RBC Distribution Width 11.9 % (11.5-14.5); Red Blood Cell (RBC) Count 4.17 mill/uL (4.20-5.40); White Blood Cell (WBC) Count 5.5 thou/uL (4.8-10.8)
[2022-04-22] MEDS ORDERED: Aspirin Chewable 81 MG TAB ONE ×2 (13:35→13:46)
[2022-04-22] MEDS ORDERED: Nitroglycerin 2% Ointment 1 INCH/1 GM Packet ONE (13:35)
[2022-04-22 13:49] LABS: ALT (SGPT) 16 U/L (8-55); AST (SGOT) 13 U/L (5-34); Albumin 4.3 g/dL (3.4-4.8); Alkaline Phosphatase 87 U/L (40-110); Anion Gap 16 mmol/L (10-20); BUN (Urea Nitrogen) 20 mg/dL (9.8-20.1); Bilirubin, Total 0.3 mg/dL (0.2-1.2); Calc. Creatinine Clearance 0 mL/min (70-130); Calcium 9.6 mg/dL (7.8-10.44); Carbon Dioxide 24 mmol/L (23-31); Chloride 106 mmol/L (98-107); Estimated GFR 73; Globulin 2.8 g/dL (2.4-3.5); Glucose 110 mg/dL (83-110); Lipase 23 U/L (8-78); Potassium 3.9 mmol/L (3.5-5.1); Protein, Total 7.1 g/dL (5.8-8.1); Sodium 142 mmol/L (136-145)
[2022-04-22] MEDS ORDERED: Sodium Chloride 0.9% 500 ML ONE (13:55)
[2022-04-22 14:38] LABS: Bilirubin Negative (Negative); Blood, Urine Negative (Negative); Clarity Clear (Clear); Glucose, Urine (Dipstick) Negative (Negative); Ketone, Urine Negative (Negative); Leukocyte Negative (Negative); Nitrite Negative (Negative); Protein, Urine (Dipstick) Negative (Neg-Trace); Urobilinogen 0.2 mg/dL (Less than 2); pH, Urine 6.5 (5.0-9.0)
[2022-04-22 15:46] LABS: SARS-CoV-2 NAA Rapid Test Not Detected (NotDetected)
[2022-04-22 17:23] LABS: Troponin I Less than 0.010 ng/mL (< 0.028)
== END 2022-04-22 17:30 | disposition short-term general hospital (02) ==
LOC: NAV ERS 12:46
DX: R07.9 Chest pain, unspecified (principal); R42 Dizziness and giddiness; R53.1 Weakness; E11.9 Type 2 diabetes mellitus without complications; I10 Essential (primary) hypertension; E78.00 Pure hypercholesterolemia, unspecified; E78.5 Hyperlipidemia, unspecified; Z20.822 Contact with and (suspected) exposure to COVID-19; Z79.899 Other long term (current) drug therapy; Z86.73 Personal history of transient ischemic attack (TIA), and cerebral infarction without residual deficits
CPT/HCPCS: 71045; 80053; 81003; 83690; 83880; 84484; 85025; 93005; J7030; U0002

== ENCOUNTER 2023-02-26 10:24 | Emergency (ER) | payer MEDICAID | END 2023-02-26 11:21 | disposition short-term general hospital (02) | LOC: NAV ERS 10:24 | DX: R22.1 Localized swelling, mass and lump, neck (principal); E11.9 Type 2 diabetes mellitus without complications; E78.00 Pure hypercholesterolemia, unspecified; I10 Essential (primary) hypertension; Z79.82 Long term (current) use of aspirin; Z79.899 Other long term (current) drug therapy | CPT/HCPCS: 99284 ==

== ENCOUNTER 2024-01-15 00:36 | Emergency (ER) | payer OTHER, MEDICAID ==
[2024-01-15 00:54] LABS: #Basophils 0.1 thou/uL (0.0-0.2); #Eosinphils 0.1 thou/uL (0.0-0.7); #Lymphocytes 2.4 thou/uL (1.20-3.40); #Monocytes 0.4 thou/uL (0.11-0.59); #Neutrophils 3.2 thou/uL (1.40-6.50); %Basophils 0.8 % (0.0-1.0); %Eosinophils 1.7 % (0.0-10.0); %Neutrophils 52.5 % (42.0-75.0); Hematocrit 40.4 % (36.0-47.0); Hemoglobin 12.8 g/dL (12.0-16.0); Mean Corpuscular HGB CONC 31.6 g/dL (32.0-36.0); Mean Corpuscular Hemoglobin 28.8 pg (27.0-31.0); Mean Corpuscular Volume 91.1 fl (78.0-98.0); Mean Platelet Volume 6.2 fL (7.4-10.4); Platelet Count 204 10x3/uL (130-400); RBC Distribution Width 12.2 % (11.5-14.5); Red Blood Cell (RBC) Count 4.44 mill/uL (4.20-5.40); White Blood Cell (WBC) Count 6.1 10x3/uL (4.8-10.8)
[2024-01-15 01:10] LABS: Bilirubin Negative (Negative); Blood, Urine Negative (Negative); Clarity Clear (Clear); Glucose, Urine (Dipstick) Negative (Negative); Ketone, Urine Negative (Negative); Leukocyte Negative (Negative); Nitrite Negative (Negative); Protein, Urine (Dipstick) Negative (Neg-Trace); Urobilinogen 0.2 mg/dL (Less than 2)
[2024-01-15 01:11] LABS: ALT (SGPT) 12 U/L (8-55); AST (SGOT) 14 U/L (5-34); Albumin 4.4 g/dL (3.4-4.8); Alkaline Phosphatase 93 U/L (40-110); Anion Gap 15 mmol/L (10-20); BUN (Urea Nitrogen) 21 mg/dL (9.8-20.1); Bilirubin, Total 0.4 mg/dL (0.2-1.2); Calc. Creatinine Clearance 0 mL/min (70-130); Calcium 9.5 mg/dL (7.8-10.44); Carbon Dioxide 22 mmol/L (23-31); Chloride 108 mmol/L (98-107); Estimated GFR 68; Globulin 2.9 g/dL (2.4-3.5); Glucose 141 mg/dL (83-110); Potassium 3.2 mmol/L (3.5-5.1); Protein, Total 7.3 g/dL (5.8-8.1); Sodium 142 mmol/L (136-145)
[2024-01-15 01:14] LABS: Bacteria/HPF Rare-Few HPF (None Seen); CAUTI Indications for Culture Dysuria,urgency,freq; RBC/HPF None Seen HPF (0-3); Urine Culture Reflex No No; WBC/HPF None Seen HPF (0-3)
[2024-01-15 01:16] LABS: Troponin I 0.011 ng/mL (< 0.028)
[2024-01-15] MEDS ORDERED: Mag-Al Plus 1200/1200/120 MG (30 mL) UDCUP ONE (01:43)
[2024-01-15] MEDS ORDERED: Lidocaine 2% Viscous 100 ML BOTTLE ONE (01:44)
== END 2024-01-15 02:35 | disposition home or self-care (01) ==
LOC: NAV ERS 00:36
DX: R07.2 Precordial pain (principal); E11.9 Type 2 diabetes mellitus without complications; E78.00 Pure hypercholesterolemia, unspecified; I10 Essential (primary) hypertension; Z79.899 Other long term (current) drug therapy; Z79.82 Long term (current) use of aspirin
CPT/HCPCS: 71045; 80053; 81001; 84484; 85025; 93005

== ENCOUNTER 2024-03-01 15:20 | Emergency (ER) | payer OTHER, MEDICAID | END 2024-03-01 16:35 | disposition home or self-care (01) | LOC: NAV ERS 15:20 | DX: K52.89 Other specified noninfective gastroenteritis and colitis (principal); B02.9 Zoster without complications; I10 Essential (primary) hypertension; E78.00 Pure hypercholesterolemia, unspecified; Z79.82 Long term (current) use of aspirin; Z79.899 Other long term (current) drug therapy; Z86.73 Personal history of transient ischemic attack (TIA), and cerebral infarction without residual deficits | CPT/HCPCS: 99283 ==

== ENCOUNTER 2024-05-18 | Emergency (ER) | payer MEDICAID, OTHER ==
[2024-05-19] MEDS ORDERED: Mag-Al Plus 1200/1200/120 MG (30 mL) UDCUP ONE (00:10)
[2024-05-19] MEDS ORDERED: Lidocaine Viscous Sol 2% 15 ml UD Cup ONE (00:11)
== END 2024-05-18 01:10 | disposition home or self-care (01) ==
LOC: NAV ERS
DX: K21.9 Gastro-esophageal reflux disease without esophagitis (principal); I10 Essential (primary) hypertension; Z86.73 Personal history of transient ischemic attack (TIA), and cerebral infarction without residual deficits; Z55.6 Problems related to health literacy
CPT/HCPCS: 93005; 99284

== ENCOUNTER 2025-02-23 01:45 | Emergency (ER) | payer OTHER, MEDICAID | END 2025-02-23 03:40 | disposition home or self-care (01) | LOC: NAV ERS 01:45 | DX: R11.2 Nausea with vomiting, unspecified (principal); I10 Essential (primary) hypertension; E78.00 Pure hypercholesterolemia, unspecified; Z86.73 Personal history of transient ischemic attack (TIA), and cerebral infarction without residual deficits; Z79.82 Long term (current) use of aspirin; Z79.899 Other long term (current) drug therapy | CPT/HCPCS: 99284 ==